=== PATIENT | female | born 1970 | race Caucasian/White ===

== ENCOUNTER 2016-12-21 15:07 | Emergency (ER) | payer SELFPAY ==
[2016-12-21] MEDS ORDERED: NAPROXEN 250 MG TABLET PO ONE (16:12)
--- NOTE | 2016-12-21 16:14 | ER Document Report ---
ED Medical Screen (RME) - General Stated Complaint: NECK PAIN Mode of Arrival: Ambulatory Information source: Patient Notes: 46 y/o F presents to ED c/o bilateral neck pain over the last 3 days. Reports has been taking care of mother doing repeated lifting. Reports associated numbness/tingling to hands. Denies chest pain or sob. I have greeted and performed a rapid initial assessment of this patient. A comprehensive ED assessment and evaluation of the patient, analysis of test results and completion of the medical decision making process will be conducted by additional ED providers. TRAVEL OUTSIDE OF THE [place] IN LAST 30 DAYS: No - Related Data Allergies/Adverse Reactions: erythromycin base Allergy (Verified 12/21/16 16:09) Past Medical History Musculoskeltal Medical History: Reports Hx Arthritis Physical Exam - General General appearance: Appears well, Alert In distress: None - Respiratory Respiratory status: No respiratory distress - Neurological Neuro grossly intact: Yes Cognition: Normal Orientation: AAOx4 [place] Coma Scale Eye Opening: Spontaneous [place] Coma Scale Verbal: Oriented [place] Coma Scale Motor: Obeys Commands [place] Coma Scale Total: 15 Motor strength normal: LUE, RUE, LLE, RLE
--- NOTE | 2016-12-21 18:02 | ER Document Report ---
ED General - General Mode of Arrival: Ambulatory Information source: Patient TRAVEL OUTSIDE OF THE [place] IN LAST 30 DAYS: No - HPI Onset: Other - see narrative Quality of pain: Achy Associated symptoms: None - General Chief Complaint: Back Pain Stated Complaint: NECK PAIN Notes: Patient is a 46-year-old female that presents to the emergency department today with complaints of neck pain, back pain, and bilateral hand and wrist pain. Patient states she woke up this morning at 0500 with the neck pain. Patient states her wrist pain has been increasing over the last few days. Patient states she has been taking care of her mother, moving her and using her arms quite frequently lately and she believes this may have caused her pain. (CARLO AMBROSE) - Related Data Allergies/Adverse Reactions: erythromycin base Allergy (Verified 12/21/16 16:09) Past Medical History - General Information source: Patient - Social History Smoking Status: Current Every Day Smoker Cigarette use (# per day): Yes Chew tobacco use (# tins/day): No Frequency of alcohol use: None Drug Abuse: None Lives with: Family Family History: None, Reviewed & Not Pertinent Patient has suicidal ideation: No Patient has homicidal ideation: No Musculoskeltal Medical History: Reports Hx Arthritis Surgical Hx: Negative Review of Systems - Review of Systems Constitutional: No symptoms reported EENT: No symptoms reported Cardiovascular: No symptoms reported Respiratory: No symptoms reported Gastrointestinal: No symptoms reported Genitourinary: No symptoms reported Female Genitourinary: No symptoms reported Musculoskeletal: See HPI, Back pain, Joint pain - hand/wrist pain bilaterally Skin: No symptoms reported Hematologic/Lymphatic: No symptoms reported Neurological/Psychological: No symptoms reported -: Yes All other systems reviewed and negative Physical Exam - Vital signs Vitals: Temp Pulse Resp BP Pulse Ox 98.2 F 80 18 132/88 H 98 12/21/16 18:32 12/21/16 18:32 12/21/16 18:32 12/21/16 18:32 12/21/16 18:32 - Notes Notes: Physical Exam: General: Alert. HEENT: Normocephalic. Atraumatic. PERRL. Extraocular movements intact. Oropharynx clear. Neck: Supple. Non-tender. Respiratory: No respiratory distress. Cardiovascular: Regular rate and rhythm. Abdominal: Normal Inspection. No distension. Back: Paraspinal musculature tenderness with palpation from C5-T1. Bilateral trapezius tenderness with palpation. Medial scapular tenderness with palpation bilaterally. No deformity or step off. Extremities: Moves all four extremities. Upper extremities: Positive Tinel's sign R>L. Decreased sensation in thumb, 2nd , and third digit bilaterally. Lower extremities: Normal inspection. Non-tender. No edema. Neurological: Normal cognition. AAOx4. Normal speech. Psychological: Normal affect. Normal Mood. Skin: Warm. Dry. Normal color. (CARLO AMBROSE) Course - Re-evaluation Re-evalutation: 12/21/16 18:51 Patient has been lifting her mother extensively at home. Mother is a paraplegic. Brother recently diagnosed with stage IV cancer. Patient has been trying to get in touch with social media strategist for help. Patient with a lateral carpal tunnel right greater than left. Patient also with neck strain. Patient will be given cock-up splint which she is to wear at night and medication for her neck. Recommended to ice. Recommend no pushing or pulling. Patient is in agreement with this plan. Return immediately if any worsening or concerning symptoms. Stable for discharge home. Discussed with charge nurse, and social work should be calling the patient tomorrow. (STEVE BURNS) - Vital Signs Vital signs: Temp Pulse Resp BP Pulse Ox 98.2 F 80 18 132/88 H 98 12/21/16 18:32 12/21/16 18:32 12/21/16 18:32 12/21/16 18:32 12/21/16 18:32 Discharge - Discharge Clinical Impression: Cervical strain, acute Qualifiers: Encounter type: initial encounter Qualified Code(s): S16.1XXA - Strain of muscle, fascia and tendon at neck level, initial encounter Carpal tunnel syndrome Qualifiers: Laterality: bilateral Qualified Code(s): G56.03 - Carpal tunnel syndrome, bilateral upper limbs Condition: Stable Disposition: HOME, SELF-CARE Instructions: Muscle Strain ([facility]), Neck Injury (Cervical Strain) ([facility]), Carpal Tunnel Syndrome ([facility]) Additional Instructions: A social work consult has been placed. Someone should contact you tomorrow. Please call [phone] if you are not called by 11 AM. Prescriptions: Carisoprodol [Soma] 350 mg PO DAILYP PRN #10 tablet PRN Reason: Tramadol HCl [Ultram 50 mg Tablet] 50 mg PO BIDP PRN #20 tablet PRN Reason: Forms: Smoking Cessation Education Scribe Attestation: 12/21/16 18:52 I personally performed the services described in the documentation, reviewed and edited the documentation which was dictated to the scribe in my presence, and it accurately records my words and actions. (STEVE BURNS) Scribe Documentation - Scribe Written by Kvng:: Kvng Gregg, 12/21/2016 1821 acting as scribe for :: Sinan
[2016-12-21 18:44] VITALS: BP 132/88
== END 2016-12-21 18:39 | disposition home or self-care (01) ==
LOC: ER 15:07
DX: S16.1XXA Strain of muscle, fascia and tendon at neck level, initial encounter (principal); X58.XXXA Exposure to other specified factors, initial encounter; G56.03 Carpal tunnel syndrome, bilateral upper limbs; M54.2 Cervicalgia; M54.9 Dorsalgia, unspecified; M25.542 Pain in joints of left hand; M25.541 Pain in joints of right hand; M25.531 Pain in right wrist; M25.532 Pain in left wrist; Z88.1 Allergy status to other antibiotic agents; F17.210 Nicotine dependence, cigarettes, uncomplicated
CPT/HCPCS: 99283; L3984 ×2

== ENCOUNTER 2017-02-23 16:51 | Emergency (ER) | payer SELFPAY ==
[2017-02-23 17:08] VITALS: BP 143/87
== END 2017-02-23 22:20 | disposition left against medical advice (07) ==
LOC: ER 16:51
DX: Z53.21 Procedure and treatment not carried out due to patient leaving prior to being seen by health care provider (principal)

== ENCOUNTER 2017-11-16 17:21 | Inpatient (IN) | payer SELFPAY ==
[2017-11-16] MEDS ORDERED: NORMAL SALINE 1000 ML 1,000 ML IV ONE (19:22)
[2017-11-16] MEDS ORDERED: BENZONATATE 100 MG CAPSULE PO ONE (19:22)
[2017-11-16] MEDS ORDERED: IPRATROPIUM/ALBUTEROL 0.5-2.5 MG/3 ML AMPUL NEB ONE (19:22)
--- NOTE | 2017-11-16 20:15 | ER Document Report ---
ED General - General Chief Complaint: Flu Symptoms Stated Complaint: FEVER Time Seen by Provider: 11/16/17 19:21 Notes: Patient is a 47-year-old female with a past medical history of tobacco use and remote history of asthma who presents with 3 weeks of progressively worsening cough that has become much worse in the last 2-3 days. She notes over the past 2-3 days she has had much worse coughing, sputum production feels short of breath constantly. Symptoms are worsened by exertion. She has been trying over -the-counter remedies without any improvement of her symptoms. She denies a history of similar symptoms in the past. She has not seen a primary doctor regarding today's concerns. She notes that she has had fevers at home up to 102 F. She notes associated nausea without vomiting. No diarrhea. No headache, focal weakness or numbness. No known sick contacts. TRAVEL OUTSIDE OF THE [place] IN LAST 30 DAYS: No - Related Data Allergies/Adverse Reactions: erythromycin base Allergy (Verified 02/23/17 17:06) Past Medical History - General Information source: Patient - Social History Smoking Status: Former Smoker Chew tobacco use (# tins/day): No Frequency of alcohol use: None Drug Abuse: None Lives with: Family Family History: Reviewed & Not Pertinent Patient has suicidal ideation: No Patient has homicidal ideation: No Renal/ Medical History: Denies: Hx Peritoneal Dialysis Musculoskeltal Medical History: Reports Hx Arthritis Review of Systems - Review of Systems Notes: Constitutional: Positive for fever. HENT: Negative for sore throat. Eyes: Negative for visual changes. Cardiovascular: Negative for chest pain. Respiratory: Positive for shortness of breath. Gastrointestinal: Negative for abdominal pain, vomiting or diarrhea. Genitourinary: Negative for dysuria. Musculoskeletal: Negative for back pain. Skin: Negative for rash. Neurological: Negative for headaches, weakness or numbness. 10 point ROS negative except as marked above and in HPI. Physical Exam - Vital signs Vitals: Temp Pulse Resp BP Pulse Ox 100.4 F 96 28 H 105/84 91 L 11/16/17 18:32 11/16/17 18:32 11/16/17 18:32 11/16/17 18:32 11/16/17 18:32 Interpretation: Hypoxic, Tachypneic, Febrile Notes: PHYSICAL EXAMINATION: GENERAL: Moderately ill in appearance but in no acute distress HEAD: Atraumatic, normocephalic. EYES: Pupils equal round and reactive to light, extraocular movements intact, sclera anicteric, conjunctiva are normal. ENT: nares patent, oropharynx clear without exudates. Moderately dry mucous membranes. NECK: Normal range of motion, supple without lymphadenopathy LUNGS: Moderate tachypnea with a respiratory rate of 26 breaths per minute at time of initial assessment. Slightly diminished at the left base. No retractions or respiratory distress. HEART: Regular rate and rhythm without murmurs ABDOMEN: Soft, nontender, normoactive bowel sounds. No guarding, no rebound. No masses appreciated. EXTREMITIES: Normal range of motion, no pitting or edema. No cyanosis. NEUROLOGICAL: No focal neurological deficits. Moves all extremities spontaneously and on command. PSYCH: Normal mood, normal affect. SKIN: Warm, Dry, normal turgor, no rashes or lesions noted. Course - Re-evaluation Re-evalutation: 11/16/17 20:14 Patient presents moderately hypoxic at 89-91% on room air, somewhat ill in appearance but in no acute respirator distress. She did have a fever of 100.4 at time of presentation. Primary concern includes a possible pneumonia versus an acute influenza given her clinical history. Her lungs are diffusely rhonchorous on examination. She does have a remote history of asthma although does not have prominent wheezing on examination. Will proceed with labs, chest x-ray, flu testing and reassess 11/16/17 21:14 Chest x-ray shows a left lower lobe pneumonia. Given patient's hypoxemia and tachypnea she is not safe for discharge in this context. She has been started on IV ceftriaxone and oral azithromycin. Will discuss with the hospitalist for admission. 11/16/17 21:36 Dr. Petty is accepted the patient for hospitalization. She continues with oxygen dependence but her work of breathing has improved. - Vital Signs Vital signs: Temp Pulse Resp BP Pulse Ox 99.2 F 77 20 97/52 L 96 11/17/17 01:46 11/17/17 01:46 11/17/17 01:46 11/17/17 01:46 11/17/17 01:50 - Laboratory Result Diagrams: 11/16/17 20:03 11/16/17 20:03 Laboratory results interpreted by me: 11/16/17 11/16/17 20:03 20:03 Hct 35.9 L Sodium 132.1 L - Diagnostic Test Radiology reviewed: Image reviewed, Reports reviewed Radiology results interpreted by me: 11/16/17 21:36 Chest x-ray: Left lower lobe pneumonia Discharge - Discharge Clinical Impression: Hypoxia Left lower lobe pneumonia Qualifiers: Pneumonia type: due to unspecified organism Qualified Code(s): J18.1 - Lobar pneumonia, unspecified organism Sepsis Qualifiers: Sepsis type: sepsis due to unspecified organism Qualified Code(s): A41.9 - Sepsis, unspecified organism Condition: Fair Disposition: ADMITTED OBSERVATION Admitting Provider: [place] [facility] Unit Admitted: Telemetry
[2017-11-16 20:25] LABS: ABSOLUTE EOSINOPHILS # (AUTO) 0.1 10^3/uL (0.0-0.6); ABSOLUTE LYMPHOCYTES (AUTO) 1.2 10^3/uL (0.5-4.7); ABSOLUTE MONOCYTES (AUTO) 0.9 10^3/uL (0.1-1.4); ABSOLUTE NEUT (AUTO) 5.9 10^3/uL (1.7-8.2); BASOPHILS % (AUTO) 0.5 % (0-2); EOSINOPHILS % (AUTO) 1.6 % (0-6); HEMATOCRIT 35.9 % (36.0-47.0); HEMOGLOBIN 12.4 g/dL (12.0-15.5); LYMPHOCYTES % (AUTO) 14.8 % (13-45); MEAN CORPUSCULAR HEMOGLOBIN 30.8 pg (27.0-33.4); MEAN CORPUSCULAR HGB CONC 34.6 g/dL (32.0-36.0); MEAN CORPUSCULAR VOLUME 89 fl (80-97); MONOCYTES % (AUTO) 10.6 % (3-13); PLATELET COUNT 353 10^3/uL (150-450); RED BLOOD COUNT 4.03 10^6/uL (3.72-5.28); RED CELL DISTRIBUTION WIDTH 13.2 % (11.5-14.0); SEGMENTED NEUTROPHILS % (AUTO) 72.5 % (42-78); TOTAL CELLS COUNTED % (AUTO) 100 %; WHITE BLOOD COUNT 8.1 10^3/uL (4.0-10.5)
[2017-11-16 20:27] LABS: VENOUS BLOOD BASE EXCESS -0.3 mmol/L; VENOUS BLOOD HCO3 24.1 mmol/L (20-32); VENOUS BLOOD PCO2 38.6 mmHg (35-63); VENOUS BLOOD PH 7.41 (7.30-7.42)
[2017-11-16 20:45] LABS: ANION GAP 9 (5-19); BLOOD UREA NITROGEN 9 mg/dL (7-20); CALCIUM 9.8 mg/dL (8.4-10.2); CARBON DIOXIDE 25 mmol/L (22-30); CHLORIDE 98 mmol/L (98-107); GLUCOSE 92 mg/dL (75-110); POTASSIUM 4.4 mmol/L (3.6-5.0); SODIUM 132.1 mmol/L (137-145)
--- NOTE | 2017-11-16 20:47 | RADIOLOGY REPORT (SQ) ---
EXAM DESCRIPTION: CHEST PA/LAT COMPLETED DATE/TIME: 11/16/2017 8:40 pm REASON FOR STUDY: fever, cough COMPARISON: None. EXAM PARAMETERS: NUMBER OF VIEWS: two views TECHNIQUE: Digital Frontal and Lateral radiographic views of the chest acquired. RADIATION DOSE: NA LIMITATIONS: none FINDINGS: LUNGS AND PLEURA: Patchy left lower lobe airspace disease. Lungs and pleural spaces other miller clear. MEDIASTINUM AND HILAR STRUCTURES: No masses or contour abnormalities. HEART AND VASCULAR STRUCTURES: Heart normal size. No evidence for failure. BONES: No acute findings. HARDWARE: None in the chest. OTHER: No other significant finding. IMPRESSION: Patchy left lower lobe airspace disease suspicious for developing pneumonia. TECHNICAL DOCUMENTATION: JOB ID: [id number] [employer]- All Rights Reserved
[2017-11-16 20:48] LABS: A TYPE INFLUENZA AG NEGATIVE (NEGATIVE); B INFLUENZA AG NEGATIVE (NEGATIVE)
[2017-11-16] MEDS ORDERED: CEFTRIAXONE 1 GM/D5W RTU 50 ML IV ONE (21:14)
[2017-11-16] MEDS ORDERED: AZITHROMYCIN 250 MG TABLET PO ONE (21:14)
[2017-11-16] MEDS ORDERED: HYDRALAZINE HCL INJ/PF 20 MG/1 ML SDV IV PRN (21:34)
[2017-11-16] MEDS ORDERED: IPRATROPIUM/ALBUTEROL 0.5-2.5 MG/3 ML AMPUL NEB PRN (21:35)
[2017-11-16] MEDS ORDERED: ACETAMINOPHEN 325 MG TABLET PO PRN (21:35)
[2017-11-16] MEDS ORDERED: GUAIFENESIN SYRP 200 MG/10 ML UDC PO PRN (21:35)
[2017-11-16] MEDS ORDERED: CEFTRIAXONE SODIUM 1,000 MG in DEXTROSE 5%-WATER 50 ML IV ONE (22:00)
[2017-11-16] MEDS ORDERED: CEFTRIAXONE INJ 1000 MG VIAL ONE (22:17)
[2017-11-16] MEDS: GUAIFENESIN 600 MG TABLET.SA PO SCH (22:29)
[2017-11-16] MEDS: HEPARIN SOD (PORCINE) 5,000 UNIT/ML 1 ML SYRINGE SUBCUT SCH (22:30)
[2017-11-16] MEDS ORDERED: CHLORPHENIRAMINE MALEATE 4 MG TABLET PO ONE (22:30)
[2017-11-16] MEDS ORDERED: FLUTICASONE NASAL SPRAY 50 MCG/SPRY 120 SPRAY/16 GM ONE (22:37)
--- NOTE | 2017-11-16 22:40 | PDOC H&P ---
History of Present Illness Admission Date/PCP: 11/16/17 21:51 Patient complains of: Shortness of breath and cough History of Present Illness: JOY MAGAÑA is a 47 year old female with a past medical history of tobacco dependence and likely chronic bronchitis. Patient presents with 1 month of increasing intensity and severity of upper respiratory infection symptoms including headache, rhinorrhea and sinus congestion developing shortness of breath with cough over the last 3 days. She denies chest pain nausea vomiting her symptoms have not significantly improved with [id number] medications. She denies recent antibiotic use or infectious contacts. In the emergency room she is found to be tachypneic with rhonchi in the left lower lobe infiltrate. She started on empiric antibiotics and referred to the hospitalist for admission. Past Medical History Pulmonary Medical History: Reports: Bronchitis Musculoskeltal Medical History: Reports: Arthritis Social History Information Source: Patient Smoking Status: Current Every Day Smoker Number of Years Smokin Frequency of Alcohol Use: None Drugs: None - Advance Directive Resuscitation Status: Full Code Family History Family History: Arthritis, Hypertension Parental Family History Reviewed: Yes Children Family History Reviewed: Yes Sibling(s) Family History Reviewed.: Yes Medication/Allergy Home Medications: Amoxicillin Trihydrate [Amoxil 500 mg Capsule] 500 mg PO TID #30 capsule Oxycodone HCl/Acetaminophen [Percocet 5-325 mg Tablet] 1 - 2 tab PO ASDIR PRN # 15 tablet 07/08/16 Carisoprodol [Soma] 350 mg PO DAILYP PRN #10 tablet 12/21/16 Tramadol HCl [Ultram 50 mg Tablet] 50 mg PO BIDP PRN #20 tablet 12/21/16 Allergies/Adverse Reactions: erythromycin base Allergy (Verified 02/23/17 17:06) Review of Systems Constitutional: ABSENT: chills, fever(s), headache(s), weight gain, weight loss Eyes: ABSENT: visual disturbances Ears: ABSENT: hearing changes Cardiovascular: ABSENT: chest pain, dyspnea on exertion, edema, orthropnea, palpitations Respiratory: ABSENT: cough, hemoptysis Gastrointestinal: ABSENT: abdominal pain, constipation, diarrhea, hematemesis, hematochezia, nausea, vomiting Genitourinary: ABSENT: dysuria, hematuria Musculoskeletal: ABSENT: joint swelling Integumentary: ABSENT: rash, wounds Neurological: ABSENT: abnormal gait, abnormal speech, confusion, dizziness, focal weakness, syncope Psychiatric: ABSENT: anxiety, depression, homidical ideation, suicidal ideation Endocrine: ABSENT: cold intolerance, heat intolerance, polydipsia, polyuria Hematologic/Lymphatic: ABSENT: easy bleeding, easy bruising Physical Exam Vital Signs: Temp Pulse Resp BP Pulse Ox 100.4 F 96 28 H 105/84 98 11/16/17 18:32 11/16/17 18:32 11/16/17 18:32 11/16/17 18:32 11/16/17 20:00 General appearance: PRESENT: cooperative, mild distress Head exam: PRESENT: atraumatic, normocephalic Eye exam: PRESENT: conjunctival injection, EOMI, periorbital swelling, PERRLA. ABSENT: nystagmus, scleral icterus Ear exam: PRESENT: normal external ear exam Mouth exam: PRESENT: moist, tongue midline Neck exam: ABSENT: carotid bruit, JVD, lymphadenopathy, tenderness, thyromegaly Respiratory exam: PRESENT: accessory muscle use, crackles, prolonged expiratory phas, rales, retraction, tachypnea. ABSENT: chest wall tenderness, clear to auscultation christie, wheezes Cardiovascular exam: PRESENT: RRR. ABSENT: diastolic murmur, rubs, systolic murmur Pulses: PRESENT: normal dorsalis pedis pul Vascular exam: PRESENT: normal capillary refill GI/Abdominal exam: PRESENT: normal bowel sounds, soft. ABSENT: distended, guarding, mass, organolmegaly, rebound, tenderness Rectal exam: PRESENT: deferred Extremities exam: PRESENT: full ROM. ABSENT: calf tenderness, clubbing, pedal edema Neurological exam: PRESENT: alert, awake, oriented to person, oriented to place , oriented to time, oriented to situation, CN II-XII grossly intact. ABSENT: motor sensory deficit Psychiatric exam: PRESENT: appropriate affect, normal mood. ABSENT: homicidal ideation, suicidal ideation Skin exam: PRESENT: dry, intact, warm. ABSENT: cyanosis, rash Results Impressions: Chest X-Ray 11/16/17 19:21 IMPRESSION: Patchy left lower lobe airspace disease suspicious for developing pneumonia. Assessment & Plan - Diagnosis (1) Left lower lobe pneumonia Qualifiers: Pneumonia type: due to unspecified organism Qualified Code(s): J18.1 - Lobar pneumonia, unspecified organism Is this a current diagnosis for this admission?: Yes Plan: Telemetry floor, pneumonia care set, flutter valve, supplemental oxygen, chlorpheniramine, empiric antibiotics. Follow-up CBC. Depression Patient denies homicidal or suicidal ideation. I Will evaluate education reconciliation, TSH and obtain urine drug screen, consider SSRI and or mental health consultation. Outpatient follow-up chest imaging to verify resolution given strong family history for lung cancer and personal history of tobacco. (2) Hypoxia Is this a current diagnosis for this admission?: Yes Plan: Incentive spirometry, oxygen, albuterol and Atrovent (3) Sinusitis Is this a current diagnosis for this admission?: Yes Plan: Flonase and empiric antibiotics (4) Tobacco abuse Is this a current diagnosis for this admission?: Yes Plan: Tobacco Dependence patient received tobacco cessation counseling and offered nicotine replacement options - Time Time Spent: 50 to 70 Minutes
[2017-11-16] MEDS: NORMAL SALINE 1000 ML 1,000 ML IV SCH (23:20)
[2017-11-16] MEDS: FLUTICASONE NASAL SPRAY 50 MCG/SPRY 120 SPRAY/16 GM NASL SCH (23:23)
[2017-11-16] MEDS ORDERED: ONDANSETRON HCL INJ/PF 4 MG/2 ML SDV IV ONE (23:30)
[2017-11-17] MEDS: IPRATROPIUM/ALBUTEROL 0.5-2.5 MG/3 ML AMPUL NEB SCH ×4 (01:46→20:36)
[2017-11-17] MEDS ORDERED: INFLUENZA ADLT QUAD (36MOS+) 2017-18 VAC 0.5 ML SYR IM PRN (02:09)
[2017-11-17] MEDS: KETOROLAC TROMETHAMINE INJ/PF 30 MG/1 ML SDV IV PRN ×2 (02:49→12:36)
[2017-11-17 05:11] LABS: ABSOLUTE EOSINOPHILS # (AUTO) 0.3 10^3/uL (0.0-0.6); ABSOLUTE LYMPHOCYTES (AUTO) 1.3 10^3/uL (0.5-4.7); ABSOLUTE MONOCYTES (AUTO) 0.8 10^3/uL (0.1-1.4); ABSOLUTE NEUT (AUTO) 4.4 10^3/uL (1.7-8.2); BASOPHILS % (AUTO) 0.4 % (0-2); EOSINOPHILS % (AUTO) 3.7 % (0-6); HEMATOCRIT 30.1 % (36.0-47.0); HEMOGLOBIN 10.5 g/dL (12.0-15.5); LYMPHOCYTES % (AUTO) 19.7 % (13-45); MEAN CORPUSCULAR HEMOGLOBIN 31.4 pg (27.0-33.4); MEAN CORPUSCULAR HGB CONC 34.9 g/dL (32.0-36.0); MEAN CORPUSCULAR VOLUME 90 fl (80-97); MONOCYTES % (AUTO) 11.4 % (3-13); PLATELET COUNT 280 10^3/uL (150-450); RED BLOOD COUNT 3.34 10^6/uL (3.72-5.28); RED CELL DISTRIBUTION WIDTH 12.8 % (11.5-14.0); SEGMENTED NEUTROPHILS % (AUTO) 64.8 % (42-78); TOTAL CELLS COUNTED % (AUTO) 100 %; WHITE BLOOD COUNT 6.8 10^3/uL (4.0-10.5)
[2017-11-17] MEDS: NORMAL SALINE 1000 ML 1,000 ML IV SCH (05:14)
[2017-11-17] MEDS: HEPARIN SOD (PORCINE) 5,000 UNIT/ML 1 ML SYRINGE SUBCUT SCH ×3 (05:17→22:41)
[2017-11-17 05:29] LABS: ANION GAP 7 (5-19); BLOOD UREA NITROGEN 7 mg/dL (7-20); CALCIUM 8.6 mg/dL (8.4-10.2); CARBON DIOXIDE 23 mmol/L (22-30); CHLORIDE 106 mmol/L (98-107); GLUCOSE 84 mg/dL (75-110); POTASSIUM 4.1 mmol/L (3.6-5.0); SODIUM 136.3 mmol/L (137-145)
[2017-11-17] MEDS ORDERED: CEFTRIAXONE 1 GM/D5W RTU 50 ML IV SCH (10:00)
[2017-11-17] MEDS: FLUTICASONE NASAL SPRAY 50 MCG/SPRY 120 SPRAY/16 GM NASL SCH ×2 (10:36→22:38)
[2017-11-17] MEDS: GUAIFENESIN 600 MG TABLET.SA PO SCH ×2 (10:36→22:38)
--- NOTE | 2017-11-17 10:43 | PDOC PROGRESS REPORT ---
Subjective Progress Note for:: 11/17/17 Subjective:: Complains of a productive cough. Reason For Visit: COD EXACERBATION PNEUMONIA Physical Exam Vital Signs: Temp Pulse Resp BP Pulse Ox 98.2 F 70 18 103/51 L 99 11/17/17 08:00 11/17/17 08:00 11/17/17 08:00 11/17/17 08:00 11/17/17 08:00 Intake & Output 11/16/17 11/17/17 11/18/17 06:59 06:59 06:59 Intake Total 1410 Balance 1410 Weight 61.8 kg General appearance: PRESENT: mild distress Eye exam: PRESENT: conjunctiva pink. ABSENT: scleral icterus Mouth exam: PRESENT: moist, tongue midline Neck exam: ABSENT: JVD Respiratory exam: PRESENT: wheezes - Bilateral expiratory wheezes. ABSENT: rales, rhonchi Cardiovascular exam: PRESENT: RRR. ABSENT: diastolic murmur, rubs, systolic murmur GI/Abdominal exam: PRESENT: normal bowel sounds, soft. ABSENT: distended, guarding, mass, organolmegaly, rebound, tenderness Extremities exam: ABSENT: calf tenderness, clubbing, pedal edema Neurological exam: PRESENT: alert, awake, oriented to person, oriented to place , oriented to time, oriented to situation, CN II-XII grossly intact. ABSENT: motor sensory deficit Psychiatric exam: PRESENT: appropriate affect Skin exam: PRESENT: dry, intact, warm. ABSENT: cyanosis, rash Results Laboratory Results: 11/17/17 04:12 11/17/17 04:12 11/17/17 11/17/17 04:12 04:12 WBC 6.8 RBC 3.34 L Hgb 10.5 L Hct 30.1 L MCV 90 MCH 31.4 MCHC 34.9 RDW 12.8 Plt Count 280 Seg Neutrophils % 64.8 Lymphocytes % 19.7 Monocytes % 11.4 Eosinophils % 3.7 Basophils % 0.4 Absolute Neutrophils 4.4 Absolute Lymphocytes 1.3 Absolute Monocytes 0.8 Absolute Eosinophils 0.3 Absolute Basophils 0.0 Sodium 136.3 L Potassium 4.1 Chloride 106 Carbon Dioxide 23 Anion Gap 7 BUN 7 Creatinine 0.64 Est GFR ( Amer) > 60 Est GFR (Non-Af Amer) > 60 Glucose 84 Calcium 8.6 Impressions: Chest X-Ray 11/16/17 19:21 IMPRESSION: Patchy left lower lobe airspace disease suspicious for developing pneumonia. Assessment & Plan - Diagnosis (1) Reactive airway disease Is this a current diagnosis for this admission?: Yes Plan: Patient has wheezes on exam today. Given her history of smoking, it is highly probable that she has COPD. We will start her on IV Solu-Medrol. Continue with antibiotics and nebulizers. (2) Left lower lobe pneumonia Qualifiers: Pneumonia type: due to unspecified organism Qualified Code(s): J18.1 - Lobar pneumonia, unspecified organism Is this a current diagnosis for this admission?: Yes Plan: Continue with Rocephin and Zithromax. (3) Tobacco abuse Is this a current diagnosis for this admission?: Yes - Time Time Spent with patient: 25-34 minutes - Inpatient Certification Medical Necessity: Need for IV Antibiotics
[2017-11-17] MEDS ORDERED: LORAZEPAM 1 MG TABLET ONE (12:31)
[2017-11-17] MEDS ORDERED: OXYCODONE HCL IR 5 MG TABLET ONE (12:31)
[2017-11-17] MEDS: METHYLPREDNISOLONE INJ 40 MG/1 ML SDV IV SCH ×2 (13:25→22:37)
[2017-11-17] MEDS ORDERED: CHOLECALCIFEROL (D3) 400 UNIT TABLET PO ONE (14:00)
[2017-11-17] MEDS ORDERED: LANSOPRAZOLE 30 MG TAB.RAP.DR PO ONE (14:00)
[2017-11-17] MEDS ORDERED: VITAMIN E (DL, ACETATE) 400 UNIT CAPSULE PO ONE (14:00)
[2017-11-17] MEDS ORDERED: DIPHENHYDRAMINE HCL 25 MG CAPSULE PO ONE (14:00)
[2017-11-17] MEDS ORDERED: LEVOTHYROXINE SODIUM 0.112 MG TABLET PO ONE (14:00)
[2017-11-17] MEDS ORDERED: ASPIRIN 81 MG TABLET, ENT COATED PO ONE (14:00)
[2017-11-17] MEDS ORDERED: SPIRONOLACTONE 25 MG TABLET PO ONE (14:00)
[2017-11-17] MEDS: CEFTRIAXONE SODIUM 1,000 MG in DEXTROSE 5%-WATER 50 ML IV SCH (17:11)
[2017-11-17] MEDS: OXYCODONE HCL IR 5 MG TABLET PO PRN (17:48)
[2017-11-17] MEDS ORDERED: AZITHROMYCIN 500 MG in DEXTROSE 5%-WATER 250 ML IV SCH (22:00)
[2017-11-18] MEDS: IPRATROPIUM/ALBUTEROL 0.5-2.5 MG/3 ML AMPUL NEB SCH ×4 (02:58→21:12)
[2017-11-18 05:06] LABS: ABSOLUTE LYMPHOCYTES (AUTO) 0.7 10^3/uL (0.5-4.7); ABSOLUTE MONOCYTES (AUTO) 0.2 10^3/uL (0.1-1.4); ABSOLUTE NEUT (AUTO) 7.3 10^3/uL (1.7-8.2); BASOPHILS % (AUTO) 0.4 % (0-2); HEMATOCRIT 34.3 % (36.0-47.0); HEMOGLOBIN 11.4 g/dL (12.0-15.5); LYMPHOCYTES % (AUTO) 8.4 % (13-45); MEAN CORPUSCULAR HEMOGLOBIN 30.4 pg (27.0-33.4); MEAN CORPUSCULAR HGB CONC 33.2 g/dL (32.0-36.0); MEAN CORPUSCULAR VOLUME 92 fl (80-97); MONOCYTES % (AUTO) 2.2 % (3-13); PLATELET COUNT 333 10^3/uL (150-450); RED BLOOD COUNT 3.75 10^6/uL (3.72-5.28); RED CELL DISTRIBUTION WIDTH 12.9 % (11.5-14.0); TOTAL CELLS COUNTED % (AUTO) 100 %; WHITE BLOOD COUNT 8.2 10^3/uL (4.0-10.5)
[2017-11-18] MEDS: HEPARIN SOD (PORCINE) 5,000 UNIT/ML 1 ML SYRINGE SUBCUT SCH ×3 (05:21→21:55)
[2017-11-18 05:34] LABS: ANION GAP 11 (5-19); BLOOD UREA NITROGEN 9 mg/dL (7-20); CALCIUM 10.2 mg/dL (8.4-10.2); CARBON DIOXIDE 24 mmol/L (22-30); CHLORIDE 103 mmol/L (98-107); GLUCOSE 195 mg/dL (75-110); POTASSIUM 4.6 mmol/L (3.6-5.0); SODIUM 137.7 mmol/L (137-145)
[2017-11-18] MEDS: METHYLPREDNISOLONE INJ 40 MG/1 ML SDV IV SCH ×3 (07:00→21:54)
[2017-11-18] MEDS: LORAZEPAM 1 MG TABLET PO PRN ×2 (08:29→21:54)
[2017-11-18] MEDS: OXYCODONE HCL IR 5 MG TABLET PO PRN ×4 (08:29→22:50)
[2017-11-18] MEDS: FLUTICASONE NASAL SPRAY 50 MCG/SPRY 120 SPRAY/16 GM NASL SCH ×2 (09:55→21:54)
[2017-11-18] MEDS: GUAIFENESIN 600 MG TABLET.SA PO SCH ×2 (09:55→21:54)
--- NOTE | 2017-11-18 13:09 | PDOC PROGRESS REPORT ---
Subjective Progress Note for:: 11/18/17 Subjective:: Complains of a productive cough. Reason For Visit: COD EXACERBATION PNEUMONIA Physical Exam Vital Signs: Temp Pulse Resp BP Pulse Ox 98.0 F 76 17 112/62 95 11/18/17 11:49 11/18/17 11:49 11/18/17 11:49 11/18/17 11:49 11/18/17 11:49 Intake & Output 11/17/17 11/18/17 11/19/17 06:59 06:59 06:59 Intake Total 1410 2500 Output Total 500 Balance 1410 2000 Weight 61.8 kg 64.1 kg General appearance: PRESENT: no acute distress Eye exam: PRESENT: conjunctiva pink. ABSENT: scleral icterus Mouth exam: PRESENT: moist, tongue midline Neck exam: ABSENT: JVD Respiratory exam: PRESENT: wheezes. ABSENT: rales, rhonchi Cardiovascular exam: PRESENT: RRR. ABSENT: diastolic murmur, rubs, systolic murmur GI/Abdominal exam: PRESENT: normal bowel sounds, soft. ABSENT: distended, guarding, mass, organolmegaly, rebound, tenderness Extremities exam: ABSENT: calf tenderness, clubbing, pedal edema Neurological exam: PRESENT: alert, awake, oriented to person, oriented to place , oriented to time, oriented to situation, CN II-XII grossly intact. ABSENT: motor sensory deficit Psychiatric exam: PRESENT: appropriate affect Skin exam: PRESENT: dry, intact, warm. ABSENT: cyanosis, rash Results Laboratory Results: 11/18/17 03:58 11/18/17 03:58 11/17/17 11/18/17 11/18/17 04:12 03:58 03:58 WBC 8.2 RBC 3.75 Hgb 11.4 L Hct 34.3 L MCV 92 MCH 30.4 MCHC 33.2 RDW 12.9 Plt Count 333 Seg Neutrophils % 89.0 H Lymphocytes % 8.4 L Monocytes % 2.2 L Eosinophils % 0.0 Basophils % 0.4 Absolute Neutrophils 7.3 Absolute Lymphocytes 0.7 Absolute Monocytes 0.2 Absolute Eosinophils 0.0 Absolute Basophils 0.0 Sodium 137.7 Potassium 4.6 Chloride 103 Carbon Dioxide 24 Anion Gap 11 BUN 9 Creatinine 0.72 Est GFR ( Amer) > 60 Est GFR (Non-Af Amer) > 60 Glucose 195 H Calcium 10.2 Serum HCG, Qual NEGATIVE Impressions: Chest X-Ray 11/16/17 19:21 IMPRESSION: Patchy left lower lobe airspace disease suspicious for developing pneumonia. Assessment & Plan - Diagnosis (1) Reactive airway disease Is this a current diagnosis for this admission?: Yes Plan: Patient has wheezes on exam today. Given her history of smoking, it is highly probable that she has COPD. We will continue on IV Solu-Medrol. Continue with antibiotics and nebulizers. (2) Left lower lobe pneumonia Qualifiers: Pneumonia type: due to unspecified organism Qualified Code(s): J18.1 - Lobar pneumonia, unspecified organism Is this a current diagnosis for this admission?: Yes Plan: Continue with Rocephin and Zithromax. (3) Tobacco abuse Is this a current diagnosis for this admission?: Yes (4) Herpes genitalia Is this a current diagnosis for this admission?: Yes Plan: Patient has vesicular lesion suspicious for herpes. Will start on acyclovir - Time Time Spent with patient: 25-34 minutes - Inpatient Certification Medical Necessity: Need Close Monitoring Due to Risk of Patient Decompensation
[2017-11-18] MEDS: ACYCLOVIR 200 MG CAPSULE PO SCH ×3 (14:05→18:51)
[2017-11-18] MEDS: CEFTRIAXONE SODIUM 1,000 MG in DEXTROSE 5%-WATER 50 ML IV SCH (17:15)
[2017-11-18] MEDS: KETOROLAC TROMETHAMINE INJ/PF 30 MG/1 ML SDV IV PRN (21:54)
[2017-11-19] MEDS: IPRATROPIUM/ALBUTEROL 0.5-2.5 MG/3 ML AMPUL NEB SCH ×2 (02:01→08:20)
[2017-11-19 05:06] LABS: ABSOLUTE LYMPHOCYTES (AUTO) 0.9 10^3/uL (0.5-4.7); ABSOLUTE MONOCYTES (AUTO) 0.5 10^3/uL (0.1-1.4); ABSOLUTE NEUT (AUTO) 13.2 10^3/uL (1.7-8.2); BASOPHILS % (AUTO) 0.1 % (0-2); HEMATOCRIT 34.8 % (36.0-47.0); HEMOGLOBIN 11.4 g/dL (12.0-15.5); LYMPHOCYTES % (AUTO) 6.4 % (13-45); MEAN CORPUSCULAR HEMOGLOBIN 29.6 pg (27.0-33.4); MEAN CORPUSCULAR HGB CONC 32.8 g/dL (32.0-36.0); MEAN CORPUSCULAR VOLUME 90 fl (80-97); MONOCYTES % (AUTO) 3.5 % (3-13); PLATELET COUNT 376 10^3/uL (150-450); RED BLOOD COUNT 3.86 10^6/uL (3.72-5.28); RED CELL DISTRIBUTION WIDTH 12.8 % (11.5-14.0); TOTAL CELLS COUNTED % (AUTO) 100 %; WHITE BLOOD COUNT 14.7 10^3/uL (4.0-10.5)
[2017-11-19 05:30] LABS: ANION GAP 12 (5-19); BLOOD UREA NITROGEN 15 mg/dL (7-20); CALCIUM 10.7 mg/dL (8.4-10.2); CARBON DIOXIDE 26 mmol/L (22-30); CHLORIDE 100 mmol/L (98-107); GLUCOSE 163 mg/dL (75-110); POTASSIUM 5.4 mmol/L (3.6-5.0)
[2017-11-19] MEDS: METHYLPREDNISOLONE INJ 40 MG/1 ML SDV IV SCH (05:44)
[2017-11-19] MEDS: OXYCODONE HCL IR 5 MG TABLET PO PRN ×2 (05:44→09:33)
[2017-11-19] MEDS: HEPARIN SOD (PORCINE) 5,000 UNIT/ML 1 ML SYRINGE SUBCUT SCH (05:52)
[2017-11-19] MEDS: ACYCLOVIR 200 MG CAPSULE PO SCH ×2 (07:20→09:32)
[2017-11-19 09:20] VITALS: BP 97/52
[2017-11-19] MEDS: FLUTICASONE NASAL SPRAY 50 MCG/SPRY 120 SPRAY/16 GM NASL SCH (09:31)
[2017-11-19] MEDS: GUAIFENESIN 600 MG TABLET.SA PO SCH (09:32)
--- NOTE | 2017-11-19 17:18 | PDOC DISCHARGE SUMMARY ---
General - Admit/Disc Date/PCP Admission Date/Primary Care Provider: 11/16/17 21:51 Discharge Date: 11/19/17 - Discharge Diagnosis (1) Reactive airway disease Is this a current diagnosis for this admission?: Yes (2) Left lower lobe pneumonia Is this a current diagnosis for this admission?: Yes (3) Tobacco abuse Is this a current diagnosis for this admission?: Yes (4) Herpes genitalia Is this a current diagnosis for this admission?: Yes - Additional Information Resuscitation Status: Full Code Discharge Diet: Regular Discharge Activity: Activity As Tolerated Prescriptions: Acyclovir [Zovirax 200 mg Capsule] 800 mg PO 5XD 7 Days capsule Cefuroxime Axetil [Ceftin 500 mg Tablet] 500 mg PO BID #14 tablet Oxycodone HCl [Oxy-Ir 5 mg Tablet] 5 mg PO Q4HP PRN #14 tablet PRN Reason: Prednisone 10 mg PO DAILY #39 tablet Home Medications: Acyclovir [Zovirax 200 mg Capsule] 800 mg PO 5XD 7 Days capsule 11/19/17 Cefuroxime Axetil [Ceftin 500 mg Tablet] 500 mg PO BID #14 tablet 11/19/17 Flu Vacc [id number] [id number] Up/Pf [Fluzone Adlt Quad [id number] Vac 0.5 ml Syr] 0.5 ml IM .DISCHARGE PRN disp.syrin 11/19/17 Oxycodone HCl [Oxy-Ir 5 mg Tablet] 5 mg PO Q4HP PRN #14 tablet 11/19/17 Prednisone 10 mg PO DAILY #39 tablet 11/19/17 History of Present Illness History of Present Illness: JOY MAGAÑA is a 47 year old female with past medical history smoking and chronic bronchitis who presents with a one-month history of worsening shortness of breath and patient also was noted to have significant wheezing worsening cough over the last 3 days. The patient was found to be tachypneic with a left lower lobe pneumonia. Suggestive of COPD although she does not carry that diagnosis yet. Hospital Course Hospital Course: 47-year-old female who is a chronic smoker with chronic bronchitis who presented with a worsening respiratory status and was found to have a left lower lobe pneumonia. Patient was started on Rocephin and Zithromax. She also started on steroids because of wheezing suggestive of COPD. She does not have a formal diagnosis of COPD as she has not had pulmonary function test. Patient had improvement in her respiratory status and on the day of discharge was still having some expiratory wheezes but overall is much improved and was no longer hypoxic. The patient will be sent home on a steroid taper along with Ceftin. The patient while hospitalized did develop what appears to be genital herpes and was started on acyclovir. Physical Exam Vital Signs: Temp Pulse Resp BP Pulse Ox 97.7 F 68 18 97/52 L 95 11/19/17 09:18 11/19/17 09:18 11/19/17 09:18 11/19/17 09:18 11/19/17 09:18 Intake & Output 11/18/17 11/19/17 11/20/17 06:59 06:59 06:59 Intake Total 2500 2320 Output Total 500 Balance 1999 2320 Weight 64.1 kg 62.1 kg General appearance: PRESENT: no acute distress Eye exam: PRESENT: conjunctiva pink. ABSENT: scleral icterus Mouth exam: PRESENT: moist, tongue midline Neck exam: ABSENT: JVD Respiratory exam: PRESENT: clear to auscultation christie. ABSENT: rales, rhonchi, wheezes Cardiovascular exam: PRESENT: RRR. ABSENT: diastolic murmur, rubs, systolic murmur Pulses: PRESENT: normal dorsalis pedis pul GI/Abdominal exam: PRESENT: normal bowel sounds, soft. ABSENT: distended, guarding, mass, organolmegaly, rebound, tenderness Extremities exam: ABSENT: calf tenderness, clubbing, pedal edema Neurological exam: PRESENT: alert, awake, oriented to person, oriented to place , oriented to time, oriented to situation, CN II-XII grossly intact. ABSENT: motor sensory deficit Psychiatric exam: PRESENT: appropriate affect Skin exam: PRESENT: dry, intact, warm. ABSENT: cyanosis, rash Results Laboratory Results: 11/19/17 04:16 11/19/17 04:16 11/19/17 11/19/17 04:16 04:16 WBC 14.7 H RBC 3.86 Hgb 11.4 L Hct 34.8 L MCV 90 MCH 29.6 MCHC 32.8 RDW 12.8 Plt Count 376 Seg Neutrophils % 90.0 H Lymphocytes % 6.4 L Monocytes % 3.5 Eosinophils % 0.0 Basophils % 0.1 Absolute Neutrophils 13.2 H Absolute Lymphocytes 0.9 Absolute Monocytes 0.5 Absolute Eosinophils 0.0 Absolute Basophils 0.0 Sodium 138.0 Potassium 5.4 H Chloride 100 Carbon Dioxide 26 Anion Gap 12 BUN 15 Creatinine 0.63 Est GFR ( Amer) > 60 Est GFR (Non-Af Amer) > 60 Glucose 163 H Calcium 10.7 H Impressions: Chest X-Ray 11/16/17 19:21 IMPRESSION: Patchy left lower lobe airspace disease suspicious for developing pneumonia. Qualifiers PATEINT BEING DISCHARGED WITH ANY OF THE FOLLOWING DIAGNOSIS?: No Plan Discharge Plan: Patient is discharged home. She will follow-up with primary care in 2 weeks. Time Spent: Less than 30 Minutes
== END 2017-11-19 10:01 | disposition home or self-care (01) | DRG 202 ==
LOC: ER 17:21 → OBSVTOIN 21:51 → EH 21:51 → 5 11-17 00:28
PROVIDERS: ADMIT Internal Medicine; ATTEND Internal Medicine
PROC: 3E0234Z Introduction of Serum, Toxoid and Vaccine into Muscle, Percutaneous Approach (ICD-10-PCS; principal; 2017-11-19)
DX: J45.998 Other asthma (principal); J18.1 Lobar pneumonia, unspecified organism; R09.02 Hypoxemia; J32.9 Chronic sinusitis, unspecified; A60.00 Herpesviral infection of urogenital system, unspecified; F17.210 Nicotine dependence, cigarettes, uncomplicated; Z23 Encounter for immunization
CPT/HCPCS: 36415; 71046; 80048; 82803; 83605; 84703; 85025; 87040; 87804; 90686; 94640; 94667; 94668; 94799; 96361; 96365; 96372; 96375; 99285; J0456; J0696; J1644; J1885; J2405; J2920; J3490; J7030; J7060; J7620

== ENCOUNTER → 2018-01-11 | Outpatient (CLI) | payer OTHER ==
--- NOTE | 2018-01-12 10:33 | RADIOLOGY REPORT (SQ) ---
EXAM DESCRIPTION: MRI CERVICAL SPINE WITHOUT COMPLETED DATE/TIME: 01/11/2018 6:50 pm REASON FOR STUDY: CHRONIC NECK PAIN, CHRONIC LOW BACK PAIN M54.2 CERVICALGIA M54.5 LOW BACK PAIN COMPARISON: None. TECHNIQUE: Sagittal and Axial imaging includes T1, T2, STIR and gradient echo sequences. LIMITATIONS: Patient motion. FINDINGS: ALIGNMENT: Grade 1 anterolisthesis C7 relative to T1. VERTEBRAE: Intact. BONE MARROW: Normal. No marrow replacement or reactive changes. DISCS: Desiccation multiple levels. HARDWARE: None in the spine. CORD AND BASE OF BRAIN: Normal in size and signal intensity. SOFT TISSUES: No soft tissue masses. C1-C2: No significant spinal stenosis. C2-C3: No significant spinal stenosis or exit foraminal stenosis. C3-C4: Mild narrowing of the spinal canal due to disc bulge and ligament thickening. C4-C5: Similar findings as at C3- 4. C5-C6: Mild spinal stenosis due to disc osteophyte complex. Moderate left and severe right neural fo raminal narrowing. Soft disc herniation to right of midline contacting the exiting right C6 nerve ro ot. C6-C7: Mild spinal stenosis due to disc osteophyte complex and ligament thickening. C7-T1: Mild spinal stenosis due to disc bulge and malalignment. UPPER THORACIC: Incompletely imaged. No significant spinal stenosis or exit foraminal stenosis. OTHER: No other significant finding. IMPRESSION: Mild spinal stenosis at several levels. Disc herniation at C5-6. TECHNICAL DOCUMENTATION: JOB ID: [id number] [employer]- All Rights Reserved Reading location - IP/workstation name: [email or web address]
--- NOTE | 2018-01-12 16:23 | RADIOLOGY REPORT (SQ) ---
EXAM DESCRIPTION: MRI LUMBAR SPINE WITHOUT COMPLETED DATE/TIME: 01/11/2018 6:50 pm REASON FOR STUDY: CHRONIC NECK PAIN, CHRONIC LOW BACK PAIN M54.2 CERVICALGIA M54.5 LOW BACK PAIN COMPARISON: None. TECHNIQUE: Sagittal and Axial imaging includes T1, T2, STIR and gradient echo sequences. Coronal T2/ HASTE imaging. LIMITATIONS: None. FINDINGS: VISUALIZED UPPER ABDOMEN: Limited evaluation. No acute or suspicious findings suggested. SEGMENTATION: No transitional anatomy. The lowest well-developed disc space is labeled L5-S1. ALIGNMENT: Anatomic. VERTEBRAE: Intact. BONE MARROW: Normal. No marrow replacement or reactive changes. DISC SIGNAL: Decreased T2 weighted intervertebral disc signal without disc space loss of height at L4 -5 and L5-S1 POSTERIOR ELEMENTS: Generally intact. No pars defect evident. HARDWARE: None in the spine. CORD AND CONUS: Normal in size and signal intensity. Conus at the L1-2 level. SOFT TISSUES: No aortic aneurysm seen. No bulky retroperitoneal adenopathy or mass. No paraspinal mas s or fluid. T11-12: Unremarkable T12-L1: Unremarkable L1-L2: Mild bilateral facet hypertrophy. No central or foraminal stenosis. L2-L3: Mild bilateral facet hypertrophy. No central or foraminal stenosis. L3-L4: Mild bilateral facet hypertrophy. Mild diffuse posterior disc bulging with left foraminal and lateral bulge. No central or right foraminal stenosis. Mild left foraminal narrowing without exiti ng L3 nerve root impingement. L4-L5: Mild diffuse posterior disc bulge and moderate bilateral facet and ligament hypertrophy is pre sent causing borderline central canal narrowing, best shown on axial T2 image 25. There is mild bila teral inferior foraminal narrowing without exiting L4 nerve root impingement. L5-S1: Moderate diffuse posterior disc bulging and moderate bilateral facet and ligament hypertrophy cause mild central canal narrowing with flattening of the thecal sac into a triangular shape, best sh own on axial image 30. There is moderate bilateral foraminal narrowing without exiting L5 nerve root impingement. SACRUM: Visualized upper sacrum intact. OTHER: No other significant findings. IMPRESSION: Degenerative changes as above TECHNICAL DOCUMENTATION: JOB ID: [id number] [employer]- All Rights Reserved Reading location - IP/workstation name: [email or web address]
== END ==
LOC: RAD 17:44
DX: M54.2 Cervicalgia (principal); M54.5 Low back pain
CPT/HCPCS: 72141; 72148

== ENCOUNTER 2018-03-12 18:45 | Emergency (ER) | payer OTHER ==
[2018-03-12] MEDS ORDERED: PREDNISONE 20 MG TABLET PO ONE (19:36)
[2018-03-12] MEDS ORDERED: IPRATROPIUM/ALBUTEROL 0.5-2.5 MG/3 ML AMPUL NEB ONE (19:36)
--- NOTE | 2018-03-12 19:38 | ER Document Report ---
ED Medical Screen (RME) - General Chief Complaint: Weakness Stated Complaint: WEAKNESS Time Seen by Provider: 03/12/18 19:32 Notes: RAPID MEDICAL EVALUATION DISCLOSURE I have seen this patient as part of a Rapid Medical Evaluation and, if applicable, placed any initially appropriate orders. The patient will be seen and fully evaluated, including a full history and physical exam, by a provider ( in Main ED or Fast Track) when a room becomes available. 48-year-old female here with complaints of body aches shortness of breath upper abdominal burning sensation nausea vomiting wheezing cough chest tightness and feeling drained over the past few days. She has cut down her cigarette smoking significantly from 1-2 packs daily to now a few cigarettes daily. She is also having difficulty urinating as well as "really bad odor" to the urine. She was recently diagnosed "with a touch of emphysema". EXAM Mild end expiratory wheezes bilaterally Normal aeration bilaterally RRR TRAVEL OUTSIDE OF THE [place] IN LAST 30 DAYS: No - Related Data Allergies/Adverse Reactions: erythromycin base Allergy (Verified 02/23/17 17:06) Past Medical History - Social History Chew tobacco use (# tins/day): No Frequency of alcohol use: None Drug Abuse: None Pulmonary Medical History: Reports: Hx Bronchitis Renal/ Medical History: Denies: Hx Peritoneal Dialysis Musculoskeltal Medical History: Reports Hx Arthritis - Immunizations History of Influenza Vaccine for 07/2017 - 12/2017 Season: No Physical Exam - Vital signs Vitals: Temp Pulse Resp BP Pulse Ox 98.5 F 69 18 132/89 H 98 03/12/18 18:50 03/12/18 18:50 03/12/18 18:50 03/12/18 18:50 03/12/18 18:50 Course - Vital Signs Vital signs: Temp Pulse Resp BP Pulse Ox 98.5 F 69 18 132/89 H 98 03/12/18 18:50 03/12/18 18:50 03/12/18 18:50 03/12/18 18:50 03/12/18 18:50
--- NOTE | 2018-03-12 20:33 | RADIOLOGY REPORT (SQ) ---
EXAM DESCRIPTION: CHEST 2 VIEWS COMPLETED DATE/TIME: 03/12/2018 7:56 pm REASON FOR STUDY: CP SOB COMPARISON: 11/16/2017 EXAM PARAMETERS: NUMBER OF VIEWS: two views TECHNIQUE: Digital Frontal and Lateral radiographic views of the chest acquired. RADIATION DOSE: NA LIMITATIONS: none FINDINGS: LUNGS AND PLEURA: No consolidation, masses or pneumothorax. No pleural effusion. MEDIASTINUM AND HILAR STRUCTURES: No masses or contour abnormalities. HEART AND VASCULAR STRUCTURES: Heart normal size. No evidence for failure. BONES: No acute findings. HARDWARE: None in the chest. OTHER: No other significant finding. IMPRESSION: NO ACUTE RADIOGRAPHIC FINDING IN THE CHEST. TECHNICAL DOCUMENTATION: JOB ID: [id number] [place]-72 2010 [employer]- All Rights Reserved Reading location - IP/workstation name: [email or web address]
--- NOTE | 2018-03-12 21:12 | EKG REPORT ---
SEVERITY:- ABNORMAL ECG - SINUS RHYTHM LEFT BUNDLE BRANCH BLOCK : Confirmed by: Ry Johansen 12-Mar-2018 21:11:26
[2018-03-12 21:14] LABS: APPEARANCE,URINE CLEAR; BILIRUBIN,URINE NEGATIVE (NEGATIVE); COLOR,URINE YELLOW; GLUCOSE, URINE NEGATIVE (NEGATIVE); KETONES,URINE NEGATIVE (NEGATIVE); LEUKOCYTE ESTERASE,URINE NEGATIVE (NEGATIVE); NITRITE,URINE NEGATIVE (NEGATIVE); PROTEIN,URINE NEGATIVE (NEGATIVE); URINE SPECIFIC GRAVITY 1.009; UROBILINOGEN,URINE NEGATIVE mg/dL (<2.0)
[2018-03-12 21:18] LABS: ABSOLUTE EOSINOPHILS # (AUTO) 0.2 10^3/uL (0.0-0.6); ABSOLUTE LYMPHOCYTES (AUTO) 0.8 10^3/uL (0.5-4.7); ABSOLUTE MONOCYTES (AUTO) 0.3 10^3/uL (0.1-1.4); ABSOLUTE NEUT (AUTO) 5.1 10^3/uL (1.7-8.2); BASOPHILS % (AUTO) 0.4 % (0-2); EOSINOPHILS % (AUTO) 2.8 % (0-6); HEMATOCRIT 40.6 % (36.0-47.0); HEMOGLOBIN 13.7 g/dL (12.0-15.5); LYMPHOCYTES % (AUTO) 12.2 % (13-45); MEAN CORPUSCULAR HEMOGLOBIN 30.6 pg (27.0-33.4); MEAN CORPUSCULAR HGB CONC 33.8 g/dL (32.0-36.0); MEAN CORPUSCULAR VOLUME 91 fl (80-97); MONOCYTES % (AUTO) 5.3 % (3-13); PLATELET COUNT 235 10^3/uL (150-450); RED BLOOD COUNT 4.47 10^6/uL (3.72-5.28); RED CELL DISTRIBUTION WIDTH 15.1 % (11.5-14.0); SEGMENTED NEUTROPHILS % (AUTO) 79.3 % (42-78); TOTAL CELLS COUNTED % (AUTO) 100 %; WHITE BLOOD COUNT 6.4 10^3/uL (4.0-10.5)
[2018-03-12 21:36] LABS: ALANINE AMINOTRANSFERASE 17 U/L (9-52); ALBUMIN 4.1 g/dL (3.5-5.0); ALKALINE PHOSPHATASE 43 U/L (38-126); ANION GAP 12 (5-19); ASPARTATE AMINO TRANSFERASE 17 U/L (14-36); BILIRUBIN,DIRECT 0.2 mg/dL (0.0-0.4); BILIRUBIN,TOTAL 0.7 mg/dL (0.2-1.3); BLOOD UREA NITROGEN 9 mg/dL (7-20); CALCIUM 9.1 mg/dL (8.4-10.2); CARBON DIOXIDE 27 mmol/L (22-30); CHLORIDE 101 mmol/L (98-107); GLUCOSE 93 mg/dL (75-110); LIPASE 54.8 U/L (23-300); PHOSPHORUS 3.3 mg/dL (2.5-4.5); POTASSIUM 3.7 mmol/L (3.6-5.0); TOTAL PROTEIN 6.9 g/dL (6.3-8.2)
--- NOTE | 2018-03-12 22:33 | ER Document Report ---
ED General - General Mode of Arrival: Ambulatory Information source: Patient TRAVEL OUTSIDE OF THE [place] IN LAST 30 DAYS: No <VERNON AGUSTIN - Last Filed: 03/12/18 22:41> <KATHERINE MOREL - Last Filed: 03/13/18 00:16> - General Chief Complaint: Weakness Stated Complaint: WEAKNESS Time Seen by Provider: 03/12/18 19:32 Notes: Patient is a 48 year old female with a history of chronic bronchitis and asthma presents to the emergency department complaining of multiple symptoms including body aches, shortness of breath, wheezing, productive cough, foul smelling urine, back pain and chest tightness onset the last couple of days. Patient states she always wheezes and has a productive cough but todays symptoms are different due to her sputum being yellowish green. Patient states she has a Symbicort inhaler at home and denies having a albuterol inhaler. (VERNON AGUSTIN) - Related Data Allergies/Adverse Reactions: erythromycin base Allergy (Verified 02/23/17 17:06) Past Medical History - General Information source: Patient - Social History Smoking Status: Current Every Day Smoker - 2 packs a day Chew tobacco use (# tins/day): No Frequency of alcohol use: None Drug Abuse: None Family History: Reviewed & Not Pertinent Patient has suicidal ideation: No Patient has homicidal ideation: No Pulmonary Medical History: Reports: Hx Asthma, Hx Bronchitis Musculoskeltal Medical History: Reports Hx Arthritis <VERNON AGUSTIN - Last Filed: 03/12/18 22:41> Review of Systems - Review of Systems Constitutional: No symptoms reported EENT: No symptoms reported Cardiovascular: See HPI, Chest pain - chest tightness Respiratory: See HPI, Cough, Short of breath, Wheezing Gastrointestinal: No symptoms reported Genitourinary: No symptoms reported Female Genitourinary: No symptoms reported Musculoskeletal: No symptoms reported Skin: No symptoms reported Hematologic/Lymphatic: No symptoms reported Neurological/Psychological: No symptoms reported -: Yes All other systems reviewed and negative <VERNON AGUSTIN - Last Filed: 03/12/18 22:41> Physical Exam - General General appearance: Appears well, Alert In distress: None - HEENT Head: Normocephalic, Atraumatic Eyes: Normal Conjunctiva: Normal Extraocular movements intact: Yes Pupils: PERRL Neck: Normal - Respiratory Respiratory status: No respiratory distress Chest status: Nontender Breath sounds: Rhonchi, Wheezing - expiratory and inspiratory Chest palpation: Normal - Cardiovascular Rhythm: Regular Heart sounds: Normal auscultation Murmur: No Friction rub: No Gallop: None auscultated - Abdominal Inspection: Normal Distension: No distension Bowel sounds: Normal Tenderness: Nontender Organomegaly: No organomegaly - Back Back: Tender - reproducibe lumbar tenderness to palpation - Extremities General upper extremity: Normal ROM General lower extremity: Normal ROM - Neurological Neuro grossly intact: Yes Cognition: Normal Orientation: AAOx4 [place] Coma Scale Eye Opening: Spontaneous [place] Coma Scale Verbal: Oriented [place] Coma Scale Motor: Obeys Commands [place] Coma Scale Total: 15 Speech: Normal - Psychological Associated symptoms: Normal affect, Normal mood - Skin Skin Temperature: Warm Skin Moisture: Dry Skin Color: Normal <VERNON AGUSTIN - Last Filed: 03/12/18 22:41> - Vital signs Vitals: Temp Pulse Resp BP Pulse Ox 98.5 F 69 18 132/89 H 98 03/12/18 18:50 03/12/18 18:50 03/12/18 18:50 03/12/18 18:50 03/12/18 18:50 Course - Laboratory Result Diagrams: 03/12/18 20:56 03/12/18 20:56 <VERNON AGUSTIN - Last Filed: 03/12/18 22:41> - Laboratory Result Diagrams: 03/12/18 20:56 03/12/18 20:56 <KATHERINE MOREL - Last Filed: 03/13/18 00:16> - Re-evaluation Re-evalutation: 03/13/18 00:15 The nurse informed me that the patient felt ready to leave as I was entering the next room to review findings with the patient and start her discharge. When I came out, the nurse informed me the patient had eloped. (KATHERINE MOREL) - Vital Signs Vital signs: Temp Pulse Resp BP Pulse Ox 98.5 F 69 18 126/78 H 99 03/12/18 18:50 03/12/18 18:50 03/12/18 18:50 03/12/18 22:01 03/12/18 22:01 - Laboratory Laboratory results interpreted by me: 03/12/18 20:56 RDW 15.1 H Seg Neutrophils % 79.3 H Lymphocytes % 12.2 L Discharge <VERNON AGUSTIN - Last Filed: 03/12/18 22:41> <KATHERINE MOREL - Last Filed: 03/13/18 00:16> - Discharge Clinical Impression: Acute exacerbation of COPD with asthma Condition: Stable Disposition: ELOPED Scribe Attestation: 03/12/18 22:53 I personally performed the services described in the documentation, reviewed and edited the documentation which was dictated to the scribe in my presence, and it accurately records my words and actions. (KATHERINE MOREL) Scribe Documentation - Scribe Written by Kvng:: Kvng Alvarez, 03/12/2018 22:41 acting as scribe for :: Elisha <VERNON AGUSTIN - Last Filed: 03/12/18 22:41>
[2018-03-12] MEDS ORDERED: DOXYCYCLINE HYCLATE 100 MG TABLET PO ONE (22:35)
[2018-03-12] MEDS ORDERED: ALBUTEROL SULFATE 0.083% NEB 2.5 MG/3 ML AMPUL NEB ONE (22:35)
[2018-03-12 22:41] VITALS: BP 126/78
[2018-03-13] MEDS ORDERED: ALBUTEROL SULFATE 0.083% NEB 2.5 MG/3 ML AMPUL NEB ONE (00:06)
== END 2018-03-13 00:16 | disposition left against medical advice (07) ==
LOC: ER 18:45
DX: J44.1 Chronic obstructive pulmonary disease with (acute) exacerbation (principal); R53.1 Weakness; M79.1 Myalgia; R10.10 Upper abdominal pain, unspecified; F17.210 Nicotine dependence, cigarettes, uncomplicated; Z88.3 Allergy status to other anti-infective agents
CPT/HCPCS: 93005; 94640 ×2; 99281; 36415; 83690; 83735; 84100; 84443; 85025; 80053; 81001; 84484; 71046; 93010; J7512; J7620

== ENCOUNTER 2018-05-27 18:32 | Emergency (ER) | payer OTHER ==
--- NOTE | 2018-05-27 18:55 | ER Document Report ---
ED Medical Screen (RME) - General Chief Complaint: Facial Swelling Stated Complaint: TOOTH PAIN Time Seen by Provider: 05/27/18 18:54 Mode of Arrival: Ambulatory Information source: Patient Notes: 48 yo female c/o increased facial swelling , pain, and dental abscess. Given clindamycin 300mg every 6 hours from ED. Saw oral siurgeon today who sent her back for CT to determine extent of the abscess. Fever, 100.6 last night. TRAVEL OUTSIDE OF THE [place] IN LAST 30 DAYS: No - Related Data Allergies/Adverse Reactions: erythromycin base Allergy (Verified 02/23/17 17:06) Past Medical History Pulmonary Medical History: Reports: Hx Asthma, Hx Bronchitis Renal/ Medical History: Denies: Hx Peritoneal Dialysis Musculoskeltal Medical History: Reports Hx Arthritis - Immunizations History of Influenza Vaccine for 07/2017 - 12/2017 Season: No Physical Exam - Vital signs Vitals: Temp Pulse Resp BP Pulse Ox 98.3 F 78 14 118/77 98 05/27/18 18:47 05/27/18 18:47 05/27/18 18:47 05/27/18 18:47 05/27/18 18:47 Course - Vital Signs Vital signs: Temp Pulse Resp BP Pulse Ox 98.3 F 78 14 118/77 98 05/27/18 18:47 05/27/18 18:47 05/27/18 18:47 05/27/18 18:47 05/27/18 18:47
[2018-05-27] MEDS ORDERED: DEXAMETHASONE SOD PHOS INJ 10 MG/1 ML VIAL IV ONE (19:03)
[2018-05-27] MEDS ORDERED: ONDANSETRON HCL INJ/PF 4 MG/2 ML SDV IV ONE (19:04)
[2018-05-27] MEDS ORDERED: MORPHINE SULFATE 10 MG/ML INJ IV ONE (19:04)
[2018-05-27] MEDS ORDERED: NORMAL SALINE 1000 ML 1,000 ML IV ONE (19:05)
[2018-05-27] MEDS ORDERED: CLINDAMYCIN 600 MG/D5W RTU 600 MG/50 ML RTUPB IV ONE (19:30)
[2018-05-27 19:59] LABS: ABSOLUTE BASOPHILS # (AUTO) 0.1 10^3/uL (0.0-0.2); ABSOLUTE EOSINOPHILS # (AUTO) 0.4 10^3/uL (0.0-0.6); ABSOLUTE LYMPHOCYTES (AUTO) 2.3 10^3/uL (0.5-4.7); ABSOLUTE NEUT (AUTO) 6.3 10^3/uL (1.7-8.2); BASOPHILS % (AUTO) 0.8 % (0-2); EOSINOPHILS % (AUTO) 3.5 % (0-6); HEMATOCRIT 39.2 % (36.0-47.0); HEMOGLOBIN 13.9 g/dL (12.0-15.5); LYMPHOCYTES % (AUTO) 22.5 % (13-45); MEAN CORPUSCULAR HEMOGLOBIN 31.9 pg (27.0-33.4); MEAN CORPUSCULAR HGB CONC 35.4 g/dL (32.0-36.0); MEAN CORPUSCULAR VOLUME 90 fl (80-97); MONOCYTES % (AUTO) 9.9 % (3-13); PLATELET COUNT 253 10^3/uL (150-450); RED BLOOD COUNT 4.34 10^6/uL (3.72-5.28); RED CELL DISTRIBUTION WIDTH 14.1 % (11.5-14.0); SEGMENTED NEUTROPHILS % (AUTO) 63.3 % (42-78); TOTAL CELLS COUNTED % (AUTO) 100 %
--- NOTE | 2018-05-27 19:59 | ER Document Report ---
ED Head/Face/Scalp Injury - General Chief Complaint: Facial Swelling Stated Complaint: TOOTH PAIN Time Seen by Provider: 05/27/18 18:54 Mode of Arrival: Ambulatory Notes: This is a 48-year-old female patient emergency department chief complaint of facial swelling. Patient was seen here yesterday and had a dental block performed due to a dental caries in the left upper molar area. States that she had moderate relief of pain. Was started on antibiotics (clindamycin). Followed up with the dentist today. Dr. Kinsey evaluated patient and took x- rays. Dr. Inman was concerned about potential worsening abscess and swelling. Sent to the emergency department for repeat evaluation. Patient states the pain is worse. Significant amount of pain and swelling in the face on the left side. No difficulty swallowing. Does have a mild headache. No neurological symptoms. No obvious fever. TRAVEL OUTSIDE OF THE [place] IN LAST 30 DAYS: No - HPI Location of problem: Cheek, Jaw Occurred: Yesterday Where: Home - Related Data Allergies/Adverse Reactions: erythromycin base Allergy (Verified 02/23/17 17:06) Past Medical History - General Information source: Patient - Social History Smoking Status: Current Every Day Smoker Cigarette use (# per day): Yes Frequency of alcohol use: None Drug Abuse: None Lives with: Family Family History: Reviewed & Not Pertinent Patient has suicidal ideation: No Patient has homicidal ideation: No Pulmonary Medical History: Reports: Hx Asthma, Hx Bronchitis Renal/ Medical History: Denies: Hx Peritoneal Dialysis Musculoskeletal Medical History: Reports Hx Arthritis Review of Systems - Review of Systems Constitutional: denies: Fever, Malaise, Weakness EENT: See HPI, Ear pain, Mouth pain, Dental problem, Other - Swelling to the face on the left side. denies: Double vision, Throat pain, Difficulty swallowing Cardiovascular: denies: Chest pain, Palpitations, Heart racing Respiratory: denies: Cough, Hurts to breathe, Short of breath, Wheezing Gastrointestinal: denies: Abdominal pain, Diarrhea, Nausea, Vomiting Genitourinary: denies: Burning, Dysuria, Discharge Musculoskeletal: denies: Back pain, Joint pain, Muscle pain Skin: denies: Dryness, Lesions, Lumps, Rash Neurological/Psychological: denies: Confusion, Lost consciousness, Numbness Physical Exam - Vital signs Vitals: Temp Pulse Resp BP Pulse Ox 98.3 F 78 14 118/77 98 05/27/18 18:47 05/27/18 18:47 05/27/18 18:47 05/27/18 18:47 05/27/18 18:47 Interpretation: Normal - General General appearance: Appears well, Alert - HEENT Head: Normocephalic, Atraumatic Eyes: Normal Pupils: PERRL Neck: Supple. No: Neck mass Notes: Patient has significant amount edema and swelling noted to the left side of the face. She has tenderness to palpation around the left upper molar area. There is no obvious drainable abscess. - Respiratory Respiratory status: No respiratory distress Chest status: Nontender Breath sounds: Normal Chest palpation: Normal - Cardiovascular Rhythm: Regular Heart sounds: Normal auscultation Murmur: No - Abdominal Inspection: Normal Distension: No distension Bowel sounds: Normal Tenderness: Nontender Organomegaly: No organomegaly - Back Back: Normal, Nontender - Extremities General upper extremity: Normal inspection, Nontender, Normal color, Normal ROM , Normal temperature General lower extremity: Normal inspection, Nontender, Normal color, Normal ROM , Normal temperature, Normal weight bearing. No: Naun's sign - Neurological Neuro grossly intact: Yes Cognition: Normal Orientation: AAOx4 [place] Coma Scale Eye Opening: Spontaneous [place] Coma Scale Verbal: Oriented [place] Coma Scale Motor: Obeys Commands [place] Coma Scale Total: 15 Speech: Normal Motor strength normal: LUE, RUE, LLE, RLE Sensory: Normal - Psychological Associated symptoms: Normal affect, Normal mood - Skin Skin Temperature: Warm Skin Moisture: Dry Skin Color: Normal Course - Re-evaluation Re-evalutation: 05/27/18 20:37 CT scan ordered of the face. Antibiotic sorted. Pain medication ordered. Will reassess. Patient may need admission to the hospital for facial cellulitis versus abscess. 05/27/18 22:26 Spoke with oral surgeon, Dr. Gould. He will see patient in the morning. Swelling is significantly improved. Patient is doing much better on pain control. We will discharge her at this time with follow-up in the morning with Dr. Gould - Vital Signs Vital signs: Temp Pulse Resp BP Pulse Ox 98.3 F 78 14 118/77 98 05/27/18 18:47 05/27/18 18:47 05/27/18 18:47 05/27/18 18:47 05/27/18 18:47 - Laboratory Result Diagrams: 05/27/18 19:40 05/27/18 19:40 Laboratory results interpreted by me: 05/27/18 05/27/18 19:40 19:40 RDW 14.1 H Potassium 3.5 L Discharge - Discharge Clinical Impression: Abscess, dental Condition: Good Disposition: HOME, SELF-CARE Instructions: Dental Infection or Abscess ([facility]) Additional Instructions: Take your antibiotics as instructed. Pain medication as needed. Follow-up with Dr. Gould as instructed. In the event that you have any problems with the financial aspects of your visit please do not hesitate to call our financial administration officer specialist, Elaina at [phone]. We will help you in any way that we can. Referrals: HUGO GOULD MD [ACTIVE STAFF] - 05/28/18 8:00 am
[2018-05-27 20:16] LABS: ALANINE AMINOTRANSFERASE 13 U/L (9-52); ALBUMIN 4.4 g/dL (3.5-5.0); ALKALINE PHOSPHATASE 50 U/L (38-126); ANION GAP 9 (5-19); ASPARTATE AMINO TRANSFERASE 15 U/L (14-36); BILIRUBIN,DIRECT 0.3 mg/dL (0.0-0.4); BILIRUBIN,TOTAL 1.1 mg/dL (0.2-1.3); BLOOD UREA NITROGEN 9 mg/dL (7-20); CALCIUM 9.3 mg/dL (8.4-10.2); CARBON DIOXIDE 30 mmol/L (22-30); CHLORIDE 105 mmol/L (98-107); GLUCOSE 96 mg/dL (75-110); POTASSIUM 3.5 mmol/L (3.6-5.0); SODIUM 143.9 mmol/L (137-145); TOTAL PROTEIN 7.7 g/dL (6.3-8.2)
[2018-05-27] MEDS ORDERED: KETOROLAC TROMETHAMINE INJ/PF 30 MG/1 ML SDV IV ONE (20:29)
[2018-05-27] MEDS ORDERED: FENTANYL CITRATE INJ/PF 100 MCG/2 ML AMPUL IV ONE (20:29)
--- NOTE | 2018-05-27 21:20 | RADIOLOGY REPORT (SQ) ---
EXAM DESCRIPTION: CT FACIAL AREA WITH COMPLETED DATE/TIME: 05/27/2018 9:03 pm REASON FOR STUDY: abscess facial and below mandible COMPARISON: None. TECHNIQUE: Post contrast images through the facial bones and orbits windowed for bone and soft tissu e. Additional coronal and sagittal reconstructed images reviewed. All images stored on PACS. All CT scanners at this facility use dose modulation, iterative reconstruction, and/or weight based d osing when appropriate to reduce radiation dose to as low as reasonably achievable (ALARA). [facility]: Dose Right [facility]: CareDose [facility]: Dose Right [facility]: Teradose 4D [facility]: [employer] CONTRAST TYPE AND DOSE: contrast/concentration: Isovue 370.00 mg/ml; Total Contrast Delivered: 75.0 ml; Total Saline Delivered: 55.0 ml RENAL FUNCTION: BUN 9 creatinine 0.8 RADIATION DOSE: CT Rad equipment meets quality standard of care and radiation dose reduction techniq ues were employed. CTDIvol: 30.4 mGy. DLP: 595 mGy-cm. . LIMITATIONS: None. FINDINGS: FACIAL BONES: No fracture. There is an area of lucency involving the root of tooth 13 in the left maxilla. ORBITS: Intact. No fracture. Symmetric intact globes and retroorbital soft tissues. PARANASAL SINUSES: Mild mucoperiosteal changes in the right maxillary sinus. More extensive mucoperi osteal thickening in the left maxillary sinus. Mild involvement of some of the ethmoid air cells. No nasal polyps. Maxillary sinus outlets are patent. SOFT TISSUES: There is edema in the soft tissues on the left side of the face. No definable abscess is seen. INFERIOR BRAIN: No significant abnormality. OTHER: No other significant finding. IMPRESSION: Dental abscess involving tooth 13. Soft tissue swelling in the face with no abscess in the soft tissues. Maxillary sinus disease more prominent on the left. TECHNICAL DOCUMENTATION: JOB ID: [id number] Quality ID # [id number]: Final reports with documentation of one or more dose reduction techniques (e.g., Au tomated exposure control, adjustment of the mA and/or kV according to patient size, use of iterative reconstruction technique) 2010 [employer]- All Rights Reserved Reading location - IP/workstation name: [email or web address]
[2018-05-27] MEDS ORDERED: HYDROCODONE/ACETAMINOPHEN 5-325 MG (6 TAB/ER DISP) PO PRN (22:29)
[2018-05-27 23:18] VITALS: BP 102/70
== END 2018-05-27 23:00 | disposition home or self-care (01) ==
LOC: ER 18:32
DX: K04.7 Periapical abscess without sinus (principal); R51 Headache; H92.09 Otalgia, unspecified ear; J45.909 Unspecified asthma, uncomplicated; F17.210 Nicotine dependence, cigarettes, uncomplicated; Z88.1 Allergy status to other antibiotic agents
CPT/HCPCS: 99284; 96375; 96365; 36415; 85025; 80053; 70487; J3010; J1885; J2270; J2405; J7030; J1100

== ENCOUNTER 2019-08-14 13:45 | Inpatient (IN) | payer SELFPAY ==
[2019-08-14] MEDS ORDERED: METHYLPREDNISOLONE INJ 125 MG/2 ML SDV IM ONE (14:09)
[2019-08-14] MEDS ORDERED: IPRATROPIUM/ALBUTEROL 0.5-2.5 MG/3 ML AMPUL NEB ONE ×4 (14:09→16:39)
--- NOTE | 2019-08-14 14:12 | ER Document Report ---
ED Medical Screen (RME) - General Mode of Arrival: Wheelchair Information source: Patient TRAVEL OUTSIDE OF THE [place] IN LAST 30 DAYS: No <ERNAY WHEELER - Last Filed: 08/14/19 14:08> - General Information source: Patient TRAVEL OUTSIDE OF THE [place] IN LAST 30 DAYS: No - HPI Onset: Other - 2 weeks Onset/Duration: Gradual Quality of pain: Sharp Severity: Moderate Associated Symptoms: Cough (productive), Other - Chest wall pain, back pain Exacerbated by: Coughing Relieved by: Denies Similar symptoms previously: Yes - Pneumonia 1 year ago Recently seen / treated by doctor: Yes - Sent over from PCPs office - Related Data Smoking: Cigarettes <TOY NEW IV - Last Filed: 08/14/19 18:02> - General Chief Complaint: Breathing Difficulty Stated Complaint: DIFFICULTY BREATHING Time Seen by Provider: 08/14/19 14:07 Primary Care Provider: GORDY MARIANO MD [Primary Care Provider] - Follow up as needed Notes: 49-year-old female presented to ED for shortness of breath wheezing difficulty breathing. She states she has had multiple uses of her inhaler today. She has inspiratory and expiratory wheezes at this time. She states that her primary doctor told her to come to the emergency room. She states this episode started a week ago and is gotten progressively worse. Patient is alert and oriented but states it is very difficult to brace. I have greeted and performed a rapid initial assessment of this patient. A comprehensive ED assessment and evaluation of the patient, analysis of test results and completion of medical decision making process will be conducted by an additional ED providers. (RENAY WHEELER) - Related Data Allergies/Adverse Reactions: erythromycin base Allergy (Verified 02/23/17 17:06) Past Medical History Pulmonary Medical History: Reports: Hx Asthma, Hx Bronchitis, Hx COPD, Hx Pneumonia Renal/ Medical History: Denies: Hx Peritoneal Dialysis Musculoskeltal Medical History: Reports Hx Arthritis, Reports Hx Muscle W eakness, Reports Hx Musculoskeletal Deformity, Reports Hx Musculoskeletal Trauma <RENAY WHEELER - Last Filed: 08/14/19 14:08> - General Information source: Patient - Social History Cigarette use (# per day): Yes Lives with: Spouse/Significant other Family history: Reviewed & Not Pertinent <TOY NEW IV - Last Filed: 08/14/19 18:02> Review of Systems - Review of Systems Constitutional: See HPI, Malaise, Weakness EENT: No symptoms reported Cardiovascular: Other - Pleuritic chest pain Respiratory: See HPI, Cough Gastrointestinal: No symptoms reported Genitourinary: No symptoms reported Female Genitourinary: No symptoms reported Skin: No symptoms reported Hematologic/Lymphatic: No symptoms reported Neurological/Psychological: No symptoms reported <TOY NEW IV - Last Filed: 08/14/19 18:02> Physical Exam <TOY NEW IV - Last Filed: 08/14/19 18:02> - Vital signs Vitals: Temp Pulse Resp BP Pulse Ox 97.7 F 66 36 H 121/96 H 100 08/14/19 13:57 08/14/19 13:57 08/14/19 13:57 08/14/19 13:57 08/14/19 13:57 - Notes Notes: PHYSICAL EXAMINATION: GENERAL: Patient appears fatigued, pale, slightly tachypneic but not in acute distress.. HEAD: Atraumatic, normocephalic. EYES: Pupils equal round and reactive to light, extraocular movements intact, sclera anicteric, conjunctiva are normal. ENT: nares patent, oropharynx clear without exudates. Moist mucous membranes. NECK: Normal range of motion, supple without lymphadenopathy LUNGS: Patient is slightly tachypneic, scant rhonchi are noted throughout lung sweet HEART: Tachycardia without click, murmur, rub ABDOMEN: Soft, nontender, normoactive bowel sounds. No guarding, no rebound. No masses appreciated. EXTREMITIES: Normal range of motion, no pitting or edema. No cyanosis. NEUROLOGICAL: No focal neurological deficits. Moves all extremities spontane ously and on command. PSYCH: Normal mood, normal affect. SKIN: Skin is pale, dry, normal turgor. (TOY NEW IV) Course - Laboratory Result Diagrams: 08/14/19 14:35 08/14/19 15:54 <TOY NEW IV - Last Filed: 08/14/19 18:02> - Vital Signs Vital signs: Temp Pulse Resp BP Pulse Ox 97.7 F 66 27 H 123/69 93 08/14/19 13:57 08/14/19 13:57 08/14/19 17:16 08/14/19 17:16 08/14/19 17:16 - Laboratory Laboratory results interpreted by me: 08/14/19 08/14/19 08/14/19 14:35 15:54 16:14 Eos % (Auto) 10.0 H Absolute Eos (auto) 0.8 H Carbonic Acid 0.80 L ABG pH 7.51 H ABG pCO2 26.5 L Sodium 136.5 L Glucose 113 H Doctor's Discharge <RENAY WHEELER - Last Filed: 08/14/19 14:08> <TOY NEW IV - Last Filed: 08/14/19 18:02> - Discharge Referrals: GORDY MARIANO MD [Primary Care Provider] - Follow up as needed
[2019-08-14] MEDS ORDERED: ALBUTEROL SULFATE 0.083% NEB 2.5 MG/3 ML AMPUL NEB SCH (14:15)
[2019-08-14] MEDS ORDERED: METHYLPREDNISOLONE INJ 125 MG/2 ML SDV IV ONE (14:19)
[2019-08-14 14:48] LABS: ABSOLUTE BASOPHILS # (AUTO) 0.1 10^3/uL (0.0-0.2); ABSOLUTE EOSINOPHILS # (AUTO) 0.8 10^3/uL (0.0-0.6); ABSOLUTE LYMPHOCYTES (AUTO) 2.2 10^3/uL (0.5-4.7); ABSOLUTE MONOCYTES (AUTO) 0.5 10^3/uL (0.1-1.4); ABSOLUTE NEUT (AUTO) 4.8 10^3/uL (1.7-8.2); BASOPHILS % (AUTO) 1.1 % (0-2); HEMATOCRIT 39.6 % (36.0-47.0); HEMOGLOBIN 13.7 g/dL (12.0-15.5); LYMPHOCYTES % (AUTO) 25.8 % (13-45); MEAN CORPUSCULAR HEMOGLOBIN 31.9 pg (27.0-33.4); MEAN CORPUSCULAR HGB CONC 34.5 g/dL (32.0-36.0); MEAN CORPUSCULAR VOLUME 93 fl (80-97); PLATELET COUNT 331 10^3/uL (150-450); RED BLOOD COUNT 4.28 10^6/uL (3.72-5.28); RED CELL DISTRIBUTION WIDTH 13.3 % (11.5-14.0); SEGMENTED NEUTROPHILS % (AUTO) 57.1 % (42-78); TOTAL CELLS COUNTED % (AUTO) 100 %; WHITE BLOOD COUNT 8.4 10^3/uL (4.0-10.5)
--- NOTE | 2019-08-14 15:22 | RADIOLOGY REPORT (SQ) ---
EXAM DESCRIPTION: CHEST 2 VIEWS COMPLETED DATE/TIME: 08/14/2019 3:07 pm REASON FOR STUDY: short of breath wheeaing COMPARISON: 03/12/2018. EXAM PARAMETERS: NUMBER OF VIEWS: two views TECHNIQUE: Digital Frontal and Lateral radiographic views of the chest acquired. RADIATION DOSE: NA LIMITATIONS: none FINDINGS: LUNGS AND PLEURA: No opacities, masses or pneumothorax. No pleural effusion. MEDIASTINUM AND HILAR STRUCTURES: No masses or contour abnormalities. HEART AND VASCULAR STRUCTURES: Heart normal size. No evidence for failure. BONES: No acute findings. HARDWARE: None in the chest. OTHER: No other significant finding. IMPRESSION: NO ACUTE RADIOGRAPHIC FINDING IN THE CHEST. TECHNICAL DOCUMENTATION: JOB ID: [id number] [employer]- All Rights Reserved Reading location - IP/workstation name: [email or web address]
--- NOTE | 2019-08-14 15:44 | ER Document Report ---
ED Respiratory Problem - General Chief Complaint: Breathing Difficulty Stated Complaint: DIFFICULTY BREATHING Time Seen by Provider: 08/14/19 14:07 Primary Care Provider: GORDY MARIANO MD [Primary Care Provider] - Follow up as needed Mode of Arrival: Wheelchair TRAVEL OUTSIDE OF THE [place] IN LAST 30 DAYS: No - HPI Notes: This is a 49-year-old female with a history of asthma, COPD, tobacco abuse that presents complaining of worsening shortness of breath for the past 2 weeks. Patient states that she is had productive cough at times with yellow sputum. Patient denies fever. Patient states that she had similar symptoms one year ago when she was diagnosed with pneumonia. Patient denies alleviating factors. Patient states dyspnea is worse with exertion. Patient states she also has chest pain with cough as well as back pain with cough. - Related Data Allergies/Adverse Reactions: erythromycin base Allergy (Verified 02/23/17 17:06) Past Medical History - General Information source: Patient - Social History Smoking Status: Never Smoker Drug Abuse: None Family History: Reviewed & Not Pertinent Patient has suicidal ideation: No Patient has homicidal ideation: No Pulmonary Medical History: Reports: Hx Asthma, Hx Bronchitis, Hx COPD, Hx Pneumonia Renal/ Medical History: Denies: Hx Peritoneal Dialysis Musculoskeletal Medical History: Reports Hx Arthritis, Reports Hx Muscle Weakness, Reports Hx Musculoskeletal Deformity, Reports Hx Musculoskeletal Trauma Physical Exam - Vital signs Vitals: Temp Pulse Resp BP Pulse Ox 97.7 F 66 36 H 121/96 H 100 08/14/19 13:57 08/14/19 13:57 08/14/19 13:57 08/14/19 13:57 08/14/19 13:57 - General General appearance: Anxious In distress: Mild - HEENT Head: Normocephalic, Atraumatic Eyes: Normal Pupils: PERRL - Respiratory Respiratory status: Respiratory distress, Tachypnea Chest status: Nontender. No: No pleuritic chest pain Breath sounds: Decreased air movement, Rhonchi Chest palpation: Normal - Cardiovascular Notes: Tachycardia without murmurs, rubs, gallop - Abdominal Notes: Soft nontender nondistended, bowel sounds diminished - Back Back: Normal, Nontender - Extremities General upper extremity: Normal inspection, Nontender, Normal color, Normal ROM, Normal temperature General lower extremity: Normal inspection, Nontender, Normal color, Normal ROM, Normal temperature, Normal weight bearing. No: Naun's sign - Neurological Neuro grossly intact: Yes Cognition: Normal Orientation: AAOx4 Bruni Coma Scale Eye Opening: Spontaneous Bruni Coma Scale Verbal: Oriented Bruni Coma Scale Motor: Obeys Commands Bruni Coma Scale Total: 15 Course - Re-evaluation Re-evalutation: 08/14/19 18:45 Patient is still complaining of sensation of dyspnea. Patient's O2 sats are 97% on room air at this time. Pallor is still present but patient does not appear tachypneic or in extremis. Work-up results discussed with patient and patient's spouse. 2 prior troponins are hemolyzed specimens, a third troponin drawl is pending at this time. Patient states that she has pain all the time, not sure if the pain is from her fibromyalgia or not. Patient is complaining of mid back pain. Differential diagnosis: Asthma, COPD, non-ST elevation IL, pneumonia, CHF, influ roberto carlos, hypoxia Medical decision making: Patient is currently maintaining her oxygen saturations on room air. Awaiting results of third troponin specimen. BN P ordered, will also order influenza swab. Family informed of differential diagnosis at this time and possibilities of inpatient admission versus transfer to another facility for higher level of care. 08/14/19 19:12 Patient's troponin is less than 0.012. Patient's BNP and influenza swab are both pending at this time. 08/14/19 23:06 At 2200 hrs., patient was tolerating BiPAP. Patient states that she is starting to feel better. Case discussed with at 2202 hours. He agreed to admit the patient. - Vital Signs Vital signs: Temp Pulse Resp BP Pulse Ox 97.7 F 66 25 H 122/68 96 08/14/19 13:57 08/14/19 13:57 08/14/19 21:15 08/14/19 21:15 08/14/19 21:15 - Laboratory Result Diagrams: 08/14/19 14:35 08/14/19 15:54 Laboratory results interpreted by me: 08/14/19 08/14/19 08/14/19 14:35 15:54 16:14 Eos % (Auto) 10.0 H Absolute Eos (auto) 0.8 H Carbonic Acid 0.80 L ABG pH 7.51 H ABG pCO2 26.5 L Sodium 136.5 L Glucose 113 H NT-Pro-B Natriuret Pep 08/14/19 18:05 Eos % (Auto) Absolute Eos (auto) Carbonic Acid ABG pH ABG pCO2 Sodium Glucose NT-Pro-B Natriuret Pep 165 H - Diagnostic Test Radiology reviewed: Reports reviewed - EKG Interpretation by Me Additional EKG results interpreted by me: 08/14/19 18:02 Patient's EKG done 08/14/2019 at 1650 hrs. 08/14/19 19:14 EKG findings: Patient has a sinus rhythm, there is no obvious ST elevation or depression noted. However, there is a left bundle branch block present on this EKG that was also present on 03/12/2018. The morphology of the prior EKG is grossly similar to the EKG done today. Impression: Sinus rhythm with a rate of 77 and a pre-existing left bundle branch block as well as nonspecific ST segments. Critical Care Note - Critical Care Note Total time excluding time spent on procedures (mins): 60 - pt put on bipap Discharge - Discharge Clinical Impression: COPD exacerbation Condition: Fair Disposition: ADMITTED INPATIENT Admitting Provider: Kylah (Hospitalist) Unit Admitted: Telemetry Forms: Parent Work Note Referrals: GORDY MARIANO MD [Primary Care Provider] - Follow up as needed
[2019-08-14] MEDS: MAGNESIUM SULFATE/D5W 1 GM/100 ML RTUPB IV SCH ×2 (16:00→16:15)
[2019-08-14] MEDS ORDERED: MAGNESIUM SULFATE/D5W 2 GM/200 ML RTUPB IV ONE (16:01)
[2019-08-14 16:32] LABS: ALKALINE PHOSPHATASE 71 U/L (38-126); ANION GAP 8 (5-19); ASPARTATE AMINO TRANSFERASE 26 U/L (14-36); BILIRUBIN,DIRECT 0.2 mg/dL (0.0-0.4); BILIRUBIN,TOTAL 0.4 mg/dL (0.2-1.3); BLOOD UREA NITROGEN 15 mg/dL (7-20); CALCIUM 9.5 mg/dL (8.4-10.2); CARBON DIOXIDE 26 mmol/L (22-30); CHLORIDE 103 mmol/L (98-107); GLUCOSE 113 mg/dL (75-110); POTASSIUM 4.1 mmol/L (3.6-5.0)
[2019-08-14 16:46] LABS: INTERNATIONAL RATION (INR) 0.97; PROTHROMBIN TIME 12.9 SEC (11.4-15.4)
[2019-08-14 17:19] LABS: ARTERIAL BLOOD BASE EXCESS -1.2 mmol/L; ARTERIAL BLOOD FIO2 100%; ARTERIAL BLOOD HCO3 20.5 mmol/L (20-24); ARTERIAL BLOOD O2 SATURATION 97.4 % (94-98); ARTERIAL BLOOD PCO2 26.5 mmHg (35-45); ARTERIAL BLOOD PH 7.51 (7.35-7.45); ARTERIAL BLOOD PO2 85.9 mmHg (80-100); ARTERIAL BLOOD TOTAL CO2 21.3 mmol/L (21-25)
[2019-08-14] MEDS ORDERED: ASPIRIN 81 MG TABLET, CHEWABLE PO ONE (18:33)
[2019-08-14 20:11] LABS: A TYPE INFLUENZA AG NEGATIVE (NEGATIVE); B INFLUENZA AG NEGATIVE (NEGATIVE)
[2019-08-14] MEDS ORDERED: MAG HYDROX/AL HYDROX/SIMETH SUSP 30 ML UDCUP PO PRN (22:37)
[2019-08-14] MEDS ORDERED: LEVALBUTEROL HCL NEB 0.63 MG/3 ML AMPUL NEB PRN (22:37)
[2019-08-14] MEDS ORDERED: MAGNESIUM HYDROXIDE SUSP 30 ML UDCUP PO PRN (22:37)
[2019-08-14] MEDS ORDERED: ONDANSETRON HCL INJ/PF 4 MG/2 ML SDV IV PRN (22:37)
[2019-08-14] MEDS ORDERED: ACETAMINOPHEN 325 MG TABLET PO PRN (22:44)
[2019-08-14] MEDS ORDERED: NICOTINE 21 MG/24 HR PATCH.TD24 TD PRN (22:44)
[2019-08-14] MEDS ORDERED: FAMOTIDINE 20 MG TABLET PO ONE (23:15)
[2019-08-15] MEDS: IPRATROPIUM BROMIDE 0.02% NEB 0.5 MG/2.5 ML AMPUL NEB SCH ×2 (00:28→07:50)
[2019-08-15] MEDS: LEVALBUTEROL HCL NEB 1.25 MG/3 ML AMPUL NEB SCH ×2 (00:28→07:51)
[2019-08-15] MEDS: METHYLPREDNISOLONE INJ 40 MG/1 ML SDV IV SCH ×2 (01:11→05:58)
[2019-08-15] MEDS: NALBUPHINE HCL INJ 10 MG/1 ML AMPULE IV PRN ×2 (01:12→07:49)
[2019-08-15 01:41] LABS: FREE T3 3.43 pg/mL (2.77-5.27); FREE T4 (FREE THYROXINE) 1.04 ng/dL (0.78-2.19)
[2019-08-15 01:54] LABS: THYROID STIMULATING HORMONE 0.37 uIU/mL (0.47-4.68)
[2019-08-15] MEDS: RINGERS SOLUTION,LACTATED 1,000 ML IV PRN ×2 (02:35→07:47)
[2019-08-15] MEDS ORDERED: HEPARIN SOD (PORCINE) 5,000 UNIT/ML 1 ML VIAL SUBCUT SCH (06:00)
[2019-08-15 06:14] LABS: HEMATOCRIT 38.7 % (36.0-47.0); HEMOGLOBIN 13.3 g/dL (12.0-15.5); MEAN CORPUSCULAR HEMOGLOBIN 32.2 pg (27.0-33.4); MEAN CORPUSCULAR HGB CONC 34.5 g/dL (32.0-36.0); MEAN CORPUSCULAR VOLUME 93 fl (80-97); PLATELET COUNT 304 10^3/uL (150-450); RED BLOOD COUNT 4.15 10^6/uL (3.72-5.28); RED CELL DISTRIBUTION WIDTH 13.5 % (11.5-14.0); WHITE BLOOD COUNT 10.2 10^3/uL (4.0-10.5)
[2019-08-15 06:39] LABS: ANION GAP 10 (5-19); BLOOD UREA NITROGEN 13 mg/dL (7-20); CARBON DIOXIDE 24 mmol/L (22-30); CHLORIDE 105 mmol/L (98-107); GLUCOSE 159 mg/dL (75-110); POTASSIUM 4.6 mmol/L (3.6-5.0)
--- NOTE | 2019-08-15 07:14 | EKG REPORT ---
SEVERITY:- ABNORMAL ECG - SINUS RHYTHM LEFT BUNDLE BRANCH BLOCK : Confirmed by: Ry Johansen 15-Aug-2019 07:13:48
[2019-08-15] MEDS ORDERED: BUDESONIDE NEB 0.5 MG/2 ML AMPUL NEB SCH (08:00)
[2019-08-15] MEDS ORDERED: ACETYLCYSTEINE 20% SOLN 800 MG/4 ML VIAL.NEB NEB SCH (08:00)
[2019-08-15] MEDS ORDERED: TRAMADOL HCL 50 MG TABLET PO PRN ×2 (08:45→10:11)
[2019-08-15] MEDS ORDERED: FAMOTIDINE 20 MG TABLET PO SCH (10:00)
[2019-08-15] MEDS ORDERED: DOCUSATE SODIUM 100 MG CAPSULE PO SCH (10:00)
[2019-08-15] MEDS ORDERED: CLONAZEPAM 1 MG TABLET PO PRN (10:11)
[2019-08-15] MEDS ORDERED: LORAZEPAM 1 MG TABLET PO ONE (11:00)
[2019-08-15] MEDS ORDERED: DULOXETINE HCL 20 MG CAPSULE.DR PO ONE (11:00)
[2019-08-15 11:14] VITALS: BP 140/65
[2019-08-15] MEDS ORDERED: DULOXETINE HCL 20 MG CAPSULE.DR PO SCH (14:00)
--- NOTE | 2019-08-15 20:58 | PDOC H&P ---
History of Present Illness Admission Date/PCP: 08/14/2017 10:12 GORDY MARIANO MD Patient complains of: Dyspnea History of Present Illness: JOY MAGAÑA is a 49 year old female who presents the emergency room with a 2-week history dyspnea. Patient admits progressively worsening dyspnea over the last 2 weeks accompanied by a paroxysmal cough productive of small amounts of yellow mucus and is associated with pleuritic chest pain occurring with coughing and deep inspiration. The dyspnea is worsened by any activity or exertion. She denies additional accompanying or associated signs and symptoms. She admits prior similar episodes associated with pneumonia. Though she smokes 1/2 to 1 pack of cigarettes daily, she has not identified any additional aggravating or ameliorating factors for her dyspnea. In the emergency room she was found to have markedly labored respirations and required BiPAP support to maintain adequate respiratory efforts. Chest x-ray was negative for acute pulmonary processes and her laboratory evaluation was unremarkable. She was subsequently admitted for further evaluation treatment. Past Medical History Cardiac Medical History: Denies: Coronary Artery Disease, DVT, Hyperlipidema, Hypertension, Pulmonary Embolism Pulmonary Medical History: Reports: Asthma, Bronchitis, Chronic Obstructive Pulmonary Disease (COPD), Pneumonia, Respiratory Failure Denies: Intubation EENT Medical History: Denies: Cataracts, Ears - Hearing aids Neurological Medical History: Denies: Hemorrhagic CVA, Ischemic CVA, Seizures Endocrine Medical History: Denies: Diabetes Mellitus Type 1, Diabetes Mellitus Type 2, Hyperthyroidism, Hypothyroidism Renal/ Medical History: Denies: Chronic Kidney Disease, Nephrolithiasis Malignancy Medical History: Reports: None GI Medical History: Denies: Cirrhosis, Hepatitis Musculoskeltal Medical History: Reports: Arthritis Denies: Gout Skin Medical History: Denies: Eczema, Psoriasis Psychiatric Medical History: Reports: Tobacco Dependency Denies: Alcohol Dependency, Substance Abuse Traumatic Medical History: Reports: None Hematology: Denies: Anemia, Bleeding Tendencies Infectious Medical History: Reports: None Social History Information Source: Patient Lives with: Spouse/Significant other Smoking Status: Current Every Day Smoker Electronic Cigarette use?: No Frequency of Alcohol Use: None Hx Recreational Drug Use: No Drugs: None Hx Prescription Drug Abuse: No - Advance Directive Resuscitation Status: Full Code Surrogate healthcare decision maker:: Washington Burch Family History Family History: Arthritis, Hypertension Parental Family History Reviewed: Yes Children Family History Reviewed: No Sibling(s) Family History Reviewed.: Yes Medication/Allergy Home Medications: Acyclovir [Zovirax 200 mg Capsule] 800 mg PO 5XD 7 Days capsule 11/19/17 Cefuroxime Axetil [Ceftin 500 mg Tablet] 500 mg PO BID #14 tablet 11/19/17 Flu Vacc [id number] Up/Pf [Fluzone Adlt Quad [id number] Vac 0.5 ml Syr] 0.5 ml IM .DISCHARGE PRN disp.syrin 11/19/17 Oxycodone HCl [Oxy-Ir 5 mg Tablet] 5 mg PO Q4HP PRN #14 tablet 11/19/17 Prednisone 10 mg PO DAILY #39 tablet 11/19/17 Clindamycin HCl 300 mg PO Q6 #40 capsule 05/26/18 Allergies/Adverse Reactions: erythromycin base Allergy (Verified 02/23/17 17:06) Review of Systems Constitutional: ABSENT: chills, fever(s) Eyes: ABSENT: visual disturbances, other - Eye pain Ears: ABSENT: hearing changes, other - Ear pain Nose, Mouth, and Throat: ABSENT: mouth pain, sore throat Cardiovascular: PRESENT: as per HPI, chest pain - Pleuritic, dyspnea on exertion. ABSENT: orthropnea, palpitations Respiratory: PRESENT: as per HPI, cough, dyspnea, sputum. ABSENT: hemoptysis Gastrointestinal: ABSENT: abdominal pain, constipation, diarrhea, nausea, vomiting Genitourinary: ABSENT: dysuria, hematuria Musculoskeletal: ABSENT: back pain, joint swelling, muscle weakness Integumentary: ABSENT: pruritus, rash Neurological: ABSENT: confusion, convulsions, focal weakness, memory loss, syncope Psychiatric: ABSENT: anxiety, depression Endocrine: ABSENT: cold intolerance, heat intolerance Hematologic/Lymphatic: ABSENT: easy bleeding, easy bruising Allergic/Immunologic: ABSENT: seasonal rhinorrhea Physical Exam Vital Signs: Temp Pulse Resp BP Pulse Ox 97.7 F 66 25 H 122/68 96 08/14/19 13:57 08/14/19 13:57 08/14/19 21:15 08/14/19 21:15 08/14/19 21:15 Intake & Output 08/12/19 08/13/19 08/14/19 23:59 23:59 23:59 Intake Total 200 Balance 200 Weight 81.647 kg General appearance: PRESENT: no acute distress, cooperative, other - On BiPAP Head exam: PRESENT: atraumatic, normocephalic Eye exam: PRESENT: conjunctiva pink. ABSENT: conjunctival injection, scleral icterus Ear exam: PRESENT: normal external ear exam. ABSENT: bleeding, drainage Mouth exam: PRESENT: dry mucosa, neck supple Neck exam: ABSENT: thyromegaly, tracheal deviation Respiratory exam: PRESENT: decreased breath sounds - Mildly decreased breath sounds throughout all sweet consistent with mild to moderate COPD, prolonged expiratory phas - Moderately prolonged expiratory phase in all sweet, symmetrical, wheezes - Expiratory wheezes in all sweet, other - On BiPAP Cardiovascular exam: PRESENT: RRR. ABSENT: clicks, gallop, rubs Pulses: PRESENT: normal radial pulses, normal dorsalis pedis pul Vascular exam: PRESENT: normal capillary refill. ABSENT: pallor GI/Abdominal exam: PRESENT: normal bowel sounds, soft Rectal exam: PRESENT: deferred Extremities exam: ABSENT: joint swelling, pedal edema Musculoskeletal exam: ABSENT: deformity, dislocation Neurological exam: PRESENT: alert, oriented to person, oriented to place, oriented to time, oriented to situation, CN II-XII grossly intact. ABSENT: motor sensory deficit Psychiatric exam: PRESENT: appropriate affect, normal mood Skin exam: PRESENT: dry, intact, warm. ABSENT: jaundice, rash, urticaria Results Laboratory Results: 08/14/19 14:35 08/14/19 15:54 08/14/19 08/14/19 08/14/19 14:35 14:35 15:54 WBC 8.4 RBC 4.28 Hgb 13.7 Hct 39.6 MCV 93 MCH 31.9 MCHC 34.5 RDW 13.3 Plt Count 331 Seg Neutrophils % 57.1 Carbonic Acid HCO3/H2CO3 Ratio ABG pH ABG pCO2 ABG pO2 ABG HCO3 ABG O2 Saturation ABG Base Excess FiO2 Sodium Cancelled 136.5 L Potassium Cancelled 4.1 Chloride Cancelled 103 Carbon Dioxide Cancelled 26 Anion Gap Cancelled 8 BUN Cancelled 15 Creatinine Cancelled 0.76 Est GFR ( Amer) Cancelled > 60 Est GFR (Non-Af Amer) Cancelled Glucose Cancelled 113 H Lactic Acid Calcium Cancelled 9.5 Magnesium Cancelled 1.9 Total Bilirubin Cancelled 0.4 AST Cancelled 26 Alkaline Phosphatase Cancelled 71 Total Protein Cancelled 7.0 Albumin Cancelled 4.0 08/14/19 08/14/19 16:14 16:14 WBC RBC Hgb Hct MCV MCH MCHC RDW Plt Count Seg Neutrophils % Carbonic Acid 0.80 L HCO3/H2CO3 Ratio 25:1 ABG pH 7.51 H ABG pCO2 26.5 L ABG pO2 85.9 ABG HCO3 20.5 ABG O2 Saturation 97.4 ABG Base Excess -1.2 FiO2 100% Sodium Potassium Chloride Carbon Dioxide Anion Gap BUN Creatinine Est GFR ( Amer) Est GFR (Non-Af Amer) Glucose Lactic Acid 1.1 Calcium Magnesium Total Bilirubin AST Alkaline Phosphatase Total Protein Albumin 08/14/19 08/14/19 08/14/19 14:35 16:53 18:05 Troponin I Cancelled Cancelled < 0.012 NT-Pro-B Natriuret Pep 08/14/19 18:05 Troponin I NT-Pro-B Natriuret Pep 165 H Impressions: Chest X-Ray 08/14/19 14:10 IMPRESSION: NO ACUTE RADIOGRAPHIC FINDING IN THE CHEST. Assessment and Plan - Diagnosis (1) Acute exacerbation of COPD with asthma Is this a current diagnosis for this admission?: Yes Plan: Patient will be treated with an aggressive pulmonary toilet utilizing Xopenex, Atrovent, Mucomyst and Pulmicort delivered via nebulizer. She will receive IV Solu-Medrol. Her respiratory status was monitored closely throughout her hospital course. (2) Acute respiratory failure Qualifiers: Respiratory failure complication: unspecified whether with hypoxia or hypercapnia Qualified Code(s): J96.00 - Acute respiratory failure, unspecified whether with hypoxia or hypercapnia Is this a current diagnosis for this admission?: Yes Plan: Patient will be maintained on BiPAP support as long as required. She will eventually be weaned to room air as tolerated. Further intervention will be undertaken if required. (3) Pleuritic chest pain Is this a current diagnosis for this admission?: Yes Plan: Patient will use Nubain 5 to 10 mg IV every 3 hours on a as needed basis using a sliding scale for pain to control her pleuritic chest pain. (4) Tobacco use disorder, severe, dependence Is this a current diagnosis for this admission?: Yes Plan: Smoking cessation is advised and counseled briefly at the bedside. A nicotine replacement patch is available for the patient's use if desired. - Time Time Spent with patient: 25-34 minutes Smoking Cessation Education: 3 to 10 minutes Medications reviewed and adjusted accordingly: Yes Anticipated discharge: Home - Inpatient Certification Based on my medical assessment, after consideration of the patient's comorbidities, presenting symptoms, or acuity I expect that the services needed warrant INPATIENT care.: Yes I certify that my determination is in accordance with my understanding of Medicare's requirements for reasonable and necessary INPATIENT services [42 CFR 412.3e].: Yes Medical Necessity: Need Close Monitoring Due to Risk of Patient Decompensation, Need For IV Fluids, Need for Nebulizer Therapy and Monitoring of Response, Need for Pain Control, Risk of Complication if Not Cared For in Hospital
--- NOTE | 2019-08-16 17:47 | PDOC DISCHARGE SUMMARY ---
Impression - Admit/DC Date/PCP Admission Date/Primary Care Provider: 08/14/19 23:13 GORDY MARIANO MD Discharge Date: 08/15/19 - Discharge Diagnosis (1) Acute exacerbation of COPD with asthma Is this a current diagnosis for this admission?: Yes (2) Acute respiratory failure Is this a current diagnosis for this admission?: Yes (3) Pleuritic chest pain Is this a current diagnosis for this admission?: Yes (4) Tobacco use disorder, severe, dependence Is this a current diagnosis for this admission?: Yes (5) Fibromyalgia Is this a current diagnosis for this admission?: Yes (6) Anxiety Is this a current diagnosis for this admission?: Yes - Additional Information Resuscitation Status: Full Code Discharge Diet: As Tolerated Discharge Activity: Activity As Tolerated, Balance Activity w/Rest Referrals: GORDY MARIANO MD [Primary Care Provider] - 08/22/19 2:00 pm Prescriptions: Fluticasone/Salmeterol [Advair HFA 115-21 mcg Inhaler] 2 puff IH BID 30 Days #1 mdi Prednisone [Deltasone 20 mg Tablet] 40 mg PO DAILY 6 Days #3 tablet Levalbuterol Tartrate [Xopenex Hfa] 15 gm IH Q6 30 Days #1 hfa.aer.ad Home Medications: Clonazepam [Klonopin 1 mg Tablet] 1 mg PO HSP PRN 08/15/19 Duloxetine HCl [Cymbalta 20 mg Capsule.dr] 20 mg PO Q8 08/15/19 Fluticasone/Salmeterol [Advair HFA 115-21 mcg Inhaler] 2 puff IH BID 30 Days #1 mdi 08/15/19 Levalbuterol Tartrate [Xopenex Hfa] 15 gm IH Q6 30 Days #1 hfa.aer.ad 08/15/19 Meloxicam [Mobic 15 mg Tablet] 15 mg PO DAILY 08/15/19 Prednisone [Deltasone 20 mg Tablet] 40 mg PO DAILY 6 Days #3 tablet 08/15/19 Tramadol HCl [Ultram 50 mg Tablet] 50 mg PO Q8HP PRN 08/15/19 History of Present Illiness History of Present Illness: JOY MAGAÑA is a 49 year old female who presents the emergency room with a 2-week history dyspnea. Patient admits progressively worsening dyspnea over the last 2 weeks accompanied by a paroxysmal cough productive of small amounts of yellow mucus and is associated with pleuritic chest pain occurring with coughing and deep inspiration. The dyspnea is worsened by any activity or exertion. She denies additional accompanying or associated signs and symptoms. She admits prior similar episodes associated with pneumonia. Though she smokes 1/2 to 1 pack of cigarettes daily, she has not identified any additional aggravating or ameliorating factors for her dyspnea. In the emergency room she was found to h ave markedly labored respirations and required BiPAP support to maintain adequate respiratory efforts. Chest x-ray was negative for acute pulmonary processes and her laboratory evaluation was unremarkable. She was subsequently admitted for further evaluation treatment. Hospital Course Hospital Course: (1) Acute exacerbation of COPD with asthma Patient is current heavy smoker. Not on home O2. Was started on pulmonary toilet utilizing Xopenex, Atrovent, Mucomyst and Pulmicort delivered via nebulizer and IV Solu-Medrol. Respiratory symptoms improved significantly. Was ambulated to see if she would need supplemental oxygen. SPO2 WNL on ambulation. Was discharged on prednisone 40 mg to complete another 4 days. LABA/ICS. PRN Xopenex. Was advised to follow-up with PCP and neurology. Was advised on quitting smoking. (2) Acute respiratory failure Due to acute COPD exacerbation. Plan as per #1. (3) Pleuritic chest pain Likely due to excessive coughing. EKG negative. Troponins negative x3. Follow measures recommended. (4) Tobacco use disorder, severe, dependence Start on nicotine patch. Smoking cessation was greatly advised. (5) Fibromyalgia Takes tramadol on duloxetine at home. Home meds will be started. (6) Anxiety Takes Klonopin at home. Benzos were restarted. Physical Exam Vital Signs: Temp Pulse Resp BP Pulse Ox 97.5 F 93 22 H 140/65 H 100 08/15/19 11:13 08/15/19 11:13 08/15/19 11:13 08/15/19 11:13 08/15/19 11:13 Intake & Output 08/15/19 08/16/19 08/17/19 06:59 06:59 06:59 Intake Total 200 868 Balance 200 868 Weight 88.9 kg Results Laboratory Results: WBC 10.2 10^3/uL (4.0-10.5) 08/15/19 05:48 RBC 4.15 10^6/uL (3.72-5.28) 08/15/19 05:48 Hgb 13.3 g/dL (12.0-15.5) 08/15/19 05:48 Hct 38.7 % (36.0-47.0) 08/15/19 05:48 MCV 93 fl (80-97) 08/15/19 05:48 MCH 32.2 pg (27.0-33.4) 08/15/19 05:48 MCHC 34.5 g/dL (32.0-36.0) 08/15/19 05:48 RDW 13.5 % (11.5-14.0) 08/15/19 05:48 Plt Count 304 10^3/uL (150-450) 08/15/19 05:48 Lymph % (Auto) 25.8 % (13-45) 08/14/19 14:35 Bertie % (Auto) 6.0 % (3-13) 08/14/19 14:35 Eos % (Auto) 10.0 % (0-6) H 08/14/19 14:35 Baso % (Auto) 1.1 % (0-2) 08/14/19 14:35 Absolute Neuts (auto) 4.8 10^3/uL (1.7-8.2) 08/14/19 14:35 Absolute Lymphs (auto) 2.2 10^3/uL (0.5-4.7) 08/14/19 14:35 Absolute Monos (auto) 0.5 10^3/uL (0.1-1.4) 08/14/19 14:35 Absolute Eos (auto) 0.8 10^3/uL (0.0-0.6) H 08/14/19 14:35 Absolute Basos (auto) 0.1 10^3/uL (0.0-0.2) 08/14/19 14:35 Seg Neutrophils % 57.1 % (42-78) 08/14/19 14:35 PT 12.9 SEC (11.4-15.4) 08/14/19 14:35 INR 0.97 08/14/19 14:35 Carbonic Acid 0.80 mmol/L (1.05-1.35) L 08/14/19 16:14 HCO3/H2CO3 Ratio 25:1 08/14/19 16:14 ABG pH 7.51 (7.35-7.45) H 08/14/19 16:14 ABG pCO2 26.5 mmHg (35-45) L 08/14/19 16:14 ABG pO2 85.9 mmHg (80-100) 08/14/19 16:14 ABG HCO3 20.5 mmol/L (20-24) 08/14/19 16:14 ABG Total CO2 21.3 mmol/L (21-25) 08/14/19 16:14 ABG O2 Saturation 97.4 % (94-98) 08/14/19 16:14 ABG Base Excess -1.2 mmol/L 08/14/19 16:14 FiO2 100% 08/14/19 16:14 Sodium 139.3 mmol/L (137-145) 08/15/19 05:48 Potassium 4.6 mmol/L (3.6-5.0) 08/15/19 05:48 Chloride 105 mmol/L (98-107) 08/15/19 05:48 Carbon Dioxide 24 mmol/L (22-30) 08/15/19 05:48 Anion Gap 10 (5-19) 08/15/19 05:48 BUN 13 mg/dL (7-20) 08/15/19 05:48 Creatinine 0.61 mg/dL (0.52-1.25) 08/15/19 05:48 Est GFR ( Amer) > 60 (>60) 08/15/19 05:48 Est GFR (Non-Af Amer) Cancelled 08/14/19 14:35 Est GFR (MDRD) Non-Af > 60 (>60) 08/15/19 05:48 Glucose 159 mg/dL (75-110) H 08/15/19 05:48 Lactic Acid 1.1 mmol/L (0.7-2.1) 08/14/19 16:14 Calcium 10.0 mg/dL (8.4-10.2) 08/15/19 05:48 Magnesium 2.2 mg/dL (1.6-2.3) 08/15/19 05:48 Total Bilirubin 0.4 mg/dL (0.2-1.3) 08/14/19 15:54 Direct Bilirubin 0.2 mg/dL (0.0-0.4) 08/14/19 15:54 Neonat Total Bilirubin Not Reportable 08/14/19 15:54 Neonat Direct Bilirubin Not Reportable 08/14/19 15:54 Neonat Indirect Bili Not Reportable 08/14/19 15:54 AST 26 U/L (14-36) 08/14/19 15:54 ALT 15 U/L (<35) 08/14/19 15:54 Alkaline Phosphatase 71 U/L (38-126) 08/14/19 15:54 Troponin I < 0.012 ng/mL 08/15/19 12:48 NT-Pro-B Natriuret Pep 165 pg/mL (<125) H 08/14/19 18:05 Total Protein 7.0 g/dL (6.3-8.2) 08/14/19 15:54 Albumin 4.0 g/dL (3.5-5.0) 08/14/19 15:54 EGFR Cancelled 08/14/19 14:35 TSH 0.37 uIU/mL (0.47-4.68) L 08/15/19 00:53 Free T4 1.04 ng/dL (0.78-2.19) 08/15/19 00:53 Free T3 pg/mL 3.43 pg/mL (2.77-5.27) 08/15/19 00:53 Influenza A (Rapid) NEGATIVE (NEGATIVE) 08/14/19 19:30 Influenza B (Rapid) NEGATIVE (NEGATIVE) 08/14/19 19:30 08/14/19 08/14/19 08/14/19 14:35 16:53 18:05 Troponin I Cancelled Cancelled < 0.012 NT-Pro-B Natriuret Pep 08/14/19 08/15/19 08/15/19 18:05 00:53 05:48 Troponin I < 0.012 < 0.012 NT-Pro-B Natriuret Pep 165 H 08/15/19 12:48 Troponin I < 0.012 NT-Pro-B Natriuret Pep Impressions: Chest X-Ray 08/14/19 14:10 IMPRESSION: NO ACUTE RADIOGRAPHIC FINDING IN THE CHEST. Stroke Is this a Stroke Patient?: No Acute Heart Failure - Is this a Heart Failure Patient?: No
== END 2019-08-15 13:03 | disposition home or self-care (01) | DRG 190 ==
LOC: ER 13:45 → EH 23:13 → 5 08-15 01:58
PROVIDERS: ADMIT Emergency Medicine; ATTEND Emergency Medicine
PROC: 5A09357 Assistance with Respiratory Ventilation, Less than 24 Consecutive Hours, Continuous Positive Airway Pressure (ICD-10-PCS; principal; 2019-08-14)
DX: J44.1 Chronic obstructive pulmonary disease with (acute) exacerbation (principal); J96.00 Acute respiratory failure, unspecified whether with hypoxia or hypercapnia; M79.7 Fibromyalgia; F41.9 Anxiety disorder, unspecified; F17.210 Nicotine dependence, cigarettes, uncomplicated; I44.7 Left bundle-branch block, unspecified; Z79.899 Other long term (current) drug therapy; Z79.52 Long term (current) use of systemic steroids; Z88.3 Allergy status to other anti-infective agents; Z82.61 Family history of arthritis; Z82.49 Family history of ischemic heart disease and other diseases of the circulatory system
CPT/HCPCS: 36415; 71046; 80048; 80053; 82803; 83605; 83735; 83880; 84439; 84443; 84481; 84484; 85025; 85027; 85610; 87040; 87804; 93005; 93010; 94640; 94660; 96365; 96375; 99291; J1644; J2300; J2920; J2930; J3475; J3490; J7120; J7620

== ENCOUNTER → 2019-11-26 | Outpatient (CLI) | payer OTHER ==
[2019-11-26 15:37] LABS: ABSOLUTE BASOPHILS # (AUTO) 0.1 10^3/uL (0.0-0.2); ABSOLUTE EOSINOPHILS # (AUTO) 0.8 10^3/uL (0.0-0.6); ABSOLUTE LYMPHOCYTES (AUTO) 2.3 10^3/uL (0.5-4.7); ABSOLUTE MONOCYTES (AUTO) 0.6 10^3/uL (0.1-1.4); ABSOLUTE NEUT (AUTO) 2.8 10^3/uL (1.7-8.2); BASOPHILS % (AUTO) 0.8 % (0-2); EOSINOPHILS % (AUTO) 12.2 % (0-6); HEMATOCRIT 38.7 % (36.0-47.0); HEMOGLOBIN 13.7 g/dL (12.0-15.5); LYMPHOCYTES % (AUTO) 34.7 % (13-45); MEAN CORPUSCULAR HEMOGLOBIN 32.7 pg (27.0-33.4); MEAN CORPUSCULAR HGB CONC 35.5 g/dL (32.0-36.0); MEAN CORPUSCULAR VOLUME 92 fl (80-97); MONOCYTES % (AUTO) 8.9 % (3-13); PLATELET COUNT 254 10^3/uL (150-450); RED BLOOD COUNT 4.19 10^6/uL (3.72-5.28); RED CELL DISTRIBUTION WIDTH 13.7 % (11.5-14.0); SEGMENTED NEUTROPHILS % (AUTO) 43.4 % (42-78); TOTAL CELLS COUNTED % (AUTO) 100 %; WHITE BLOOD COUNT 6.5 10^3/uL (4.0-10.5)
[2019-11-26 15:56] LABS: ALBUMIN 4.2 g/dL (3.5-5.0); ALKALINE PHOSPHATASE 44 U/L (38-126); ANION GAP 9 (5-19); ASPARTATE AMINO TRANSFERASE 25 U/L (14-36); BILIRUBIN,DIRECT 0.3 mg/dL (0.0-0.4); BILIRUBIN,TOTAL 0.9 mg/dL (0.2-1.3); BLOOD UREA NITROGEN 16 mg/dL (7-20); CALCIUM 9.5 mg/dL (8.4-10.2); CARBON DIOXIDE 29 mmol/L (22-30); CHLORIDE 99 mmol/L (98-107); GLUCOSE 108 mg/dL (75-110); POTASSIUM 3.9 mmol/L (3.6-5.0); TRIGLYCERIDES 140 mg/dL (<150)
[2019-11-26 16:07] LABS: DIRECT LDL 140 mg/dL (<100)
== END ==
LOC: LAB 15:13
PROVIDERS: ATTEND Internal Medicine Cardiovascular Disease
DX: I42.0 Dilated cardiomyopathy (principal); E78.5 Hyperlipidemia, unspecified
CPT/HCPCS: 36415; 80053; 80061; 85025